=== PATIENT | female | born 1995 | race Two or more races ===

== ENCOUNTER 2024-08-17 14:04 | Outpatient (REF) | payer OTHER, SELFPAY ==
[2024-08-17 14:33] LABS: MANUAL DIFF FLAG NO
[2024-08-17 14:58] LABS: Basophils Percent Auto 0.3 % (0-2); Eosinophils Absolute Auto 0.1 X10*3/uL (0.0-0.4); Eosinophils Percent Auto 0.8 % (0-4); Hematocrit 34.7 % (37.0-47.0); Hemoglobin 10.9 g/dl (12.0-16.0); Imm Gran Abs Auto 0.02 X10*3/uL (0.00-0.03); Imm Gran Pct Auto 0.3 % (0.0-0.4); Lymphocytes Absolute Auto 2.4 X10*3/uL (1.2-4.9); Lymphocytes Percent Auto 32.7 % (20-40); Mean Corpuscular HGB Conc 31.4 g/dl (31.0-35.0); Mean Corpuscular Hemoglobin 24.3 pg (27.0-33.0); Mean Corpuscular Volume 77.3 fL (80.0-98.0); Mean Platelet Volume 11.6 fL (9.4-12.3); Monocytes Absolute Auto 0.7 X10*3/uL (0.1-1.2); Monocytes Percent Auto 8.8 % (2-11); Neutrophils Absolute Auto 4.3 x10*3/uL (2.0-8.3); Neutrophils Percent Auto 57.1 % (45-73); Platelet Count 304 X10*3/uL (160-400); Red Blood Count 4.49 X10*6/uL (4.20-5.50); Red Cell Distribution Width 18.1 % (11.0-16.0); White Blood Count 7.5 X10*3/uL (4.8-10.8)
[2024-08-17 16:29] LABS: Alanine Aminotransferase 14 U/L (0-31); Albumin Level 4.5 g/dL (3.5-5.0); Anion Gap 13 (12-20); Aspartate Amino Transferase 16 U/L (5-31); Bilirubin Total 0.3 mg/dL (0.0-1.0); Blood Urea Nitrogen 13 mg/dL (9-16); Calcium 9.8 mg/dL (8.4-10.2); Carbon Dioxide 26 mmol/L (22-29); Chloride 106 mmol/L (96-108); Estimated Glomerular Filt Rate > 60; Glucose Random 89 mg/dL (60-115); Potassium 4.6 mmol/L (3.3-5.1); Sodium 140 mmol/L (135-145); Total Protein 7.4 g/dL (6.5-8.0)
[2024-08-17 16:30] LABS: Free T4 (Free Thyroxine) 1.33 ng/dL (0.71-1.85); Thyroid Stimulating Hormone 1.99 uIU/mL (0.32-4.0)
[2024-08-17 17:27] LABS: Alkaline Phosphatase 54 U/L (39-117)
[2024-08-18 07:33] LABS: Triiodothyronine T3 Total 90 ng/dL (76-181)
== END 2024-08-17 14:05 | disposition home or self-care (01) ==
LOC: HO.LAB 14:04
PROVIDERS: Visit Provider Psychiatry & Neurology Psychiatry
DX: F33.2 Major depressive disorder, recurrent severe without psychotic features (principal); F41.1 Generalized anxiety disorder; F43.10 Post-traumatic stress disorder, unspecified
CPT/HCPCS: 36415; 80053; 84439; 84443; 84480; 85025

== ENCOUNTER 2024-08-20 13:15 | Outpatient (RCR) | payer OTHER, SELFPAY ==
[2024-08-12 11:00] VITALS: BMI 32.1
[2024-08-12 11:01] VITALS: BP 110/64; PULSE 76; TEMP 36.8
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
--- NOTE | 2024-08-19 12:10 | PC.NURSE ---
New PCP appointment with Vivian Hadley at [facility]. [address] [facility]. On November 23, 2024 at 9:45 am. Office Number [phone] to appointment fax medical records from your previous PCP to fax # [phone].
[2024-08-19 12:37] VITALS: BP 96/60; PULSE 64
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
--- NOTE | 2024-08-23 10:02 | HO.IOP ---
Phyllis was not in attendance to program today due to being at [facility] [place] for an attempted overdose.
--- NOTE | 2024-08-23 14:21 | HO.PHP ---
Phyllis was not in attendance to program today due to being at [facility] unit for an attempted overdose.
== END 2024-08-20 23:59 | disposition home or self-care (01) ==
LOC: HO.PHPA 13:15
PROVIDERS: Visit Provider Psychiatry & Neurology Psychiatry
DX: F32.2 Major depressive disorder, single episode, severe without psychotic features (principal); F41.1 Generalized anxiety disorder
CPT/HCPCS: 90791; 90853

== ENCOUNTER 2024-08-21 22:49 | Inpatient (IN) | payer OTHER, SELFPAY ==
--- NOTE | 2024-08-21 | ECG_ITS ---
Test Reason : OVERDOSE Blood Pressure : / mmHG Vent. Rate : 084 BPM Atrial Rate : 084 BPM P-R Int : 160 ms QRS Dur : 082 ms QT Int : 386 ms P-R-T Axes : 037 073 026 degrees QTc Int : 456 ms Normal sinus rhythm Normal ECG No previous ECGs available Referred By: Generic ED Physician Electronically Signed By:MADDY OLMOS MD
[2024-08-21 22:57] VITALS: BP 150/78; PULSE 89; O2SAT 98
[2024-08-21 23:09] VITALS: BP 114/63; PULSE 82; RESP 17; TEMP 37; O2SAT 98; BMI 32.7
--- NOTE | 2024-08-21 23:42 | PC.NURSE ---
pt found by significant other prior to arrival with multiple empty bottles of medications including, tylenol, morphine, propanolol, hydroxyzine, aripiprazole, and bupropion. pt reports she had done this to go to sleep, pt reports prior SI attempts. ems administered 4mg IM narcan. pt is a&ox4 at this time but appears sleepy. vss.
[2024-08-21 23:43] LABS: MANUAL DIFF FLAG NO
[2024-08-21 23:46] LABS: Basophils Percent Auto 0.1 % (0-2); Eosinophils Percent Auto 0.1 % (0-4); Hematocrit 32.3 % (37.0-47.0); Hemoglobin 10.5 g/dl (12.0-16.0); Imm Gran Abs Auto 0.02 X10*3/uL (0.00-0.03); Imm Gran Pct Auto 0.2 % (0.0-0.4); Lymphocytes Absolute Auto 2.2 X10*3/uL (1.2-4.9); Lymphocytes Percent Auto 24.6 % (20-40); Mean Corpuscular HGB Conc 32.5 g/dl (31.0-35.0); Mean Corpuscular Hemoglobin 24.2 pg (27.0-33.0); Mean Corpuscular Volume 74.6 fL (80.0-98.0); Monocytes Absolute Auto 0.7 X10*3/uL (0.1-1.2); Platelet Count 261 X10*3/uL (160-400); Red Blood Count 4.33 X10*6/uL (4.20-5.50); Red Cell Distribution Width 17.7 % (11.0-16.0)
--- NOTE | 2024-08-21 23:48 | PC.NURSE ---
poison control contacted by this RN. per poison control they do not have any recommendations due to unknown dose of medications. James AMAYA aware.
[2024-08-22] VITALS (18 sets, daily range): BP systolic 90–132; BP diastolic 45–75; PULSE 70–98; RESP 10–20; TEMP 36.2–36.8; O2SAT 93–100; BMI 35.2
[2024-08-22 00:05] LABS: Acetaminophen LAB 5 mcg/mL (<30); Salicylate < 5.0 mg/dL (15-30)
--- NOTE | 2024-08-22 00:05 | ED_ITS ---
HPI - General Adult General Chief complaint: Overdose Stated complaint: polypharm od, etoh,narcan given Time Seen by Provider: 08/21/24 23:16 Source: patient, family (Ex-), RN notes reviewed and old records reviewed Mode of arrival: EMS Limitations: altered mental status History of Present Illness ED Provider: Ponce HPI narrative: 29-year-old female presents for evaluation of an overdose. Per EMS, the patient was found unresponsive with empty pill bottles next to her The patient is quite lethargic but is able to answer questions and respond to commands She reports that she took many prescription medications. They are not all prescribed to her. She denies any street drugs. She does report some recent suicidal thoughts. She states that she took all his medications ?to go to sleep. ? The patient reports that she is not in pain The patient lives with her ex- I spoke to the ex-, Joshua. He reports the patient came home from work around 615 in the evening. He received a text message from a mutual friend who suggested that he check on the patient. He got up and went to check on the patient around 10 30-10 40 5:00 p.m.. He found the patient unresponsive and would not wake up so he called 911 The patient was given Narcan 4 mg by EMS with no effect The patient reportedly overdosed on an unknown amount of acetaminophen, morphine, propranolol, hydroxyzine, omeprazole, bupropion. The patient has a discharge summary from a psychiatrist dated 08/20/2024 with a prescription for: Buspirone 5 mg tablets to be taken b.i.d. dispensed 14 no refills Propranolol 10 mg tablets PO TID dispense 15 no refills Aripiprazole 2 mg tablets take 2 mg daily dispensed 14 no refills Prazosin 1 mg at bedtime dispensed 14 no refills. It is unclear how much Tylenol the patient had access to. The patient's ex- reports that he had morphine prescribed to him from a previous surgery He does not know the dose but believes there may have been approximately 10 tablets in the bottle that was empty Related Data Previous Rx's ?Medication ?Instructions ?Recorded buspirone 5 mg tablet 5 mg PO BID #14 tabs 08/13/24 propranolol 10 mg tablet 10 mg PO TID #15 tabs 08/13/24 aripiprazole 2 mg tablet 2 mg PO DAILY as directed #14 tabs 08/20/24 prazosin 1 mg capsule 1 mg PO BEDTIME as directed #14 08/20/24 caps Allergies Allergy/AdvReac Type Severity Reaction Status Date / Time acetaminophen [From Percocet] Allergy Hives Verified 08/21/24 23:15 oxycodone [From Percocet] Allergy Hives Verified 08/21/24 23:15 Review of Systems 2 Constitutional: Constitutional: Denies fever(s) and Denies headache(s) ENT: Denies headache(s) Cardiovascular: Cardiovascular: Denies chest pain Gastrointestinal: Gastrointestinal: Denies abdominal pain Musculoskeletal: Musculoskeletal: Denies back pain Neurologic: Denies confusion and Denies headache(s) Psychiatric: Psychiatric: Reports anxiety, Denies confusion, Reports depression and Reports suicidal ideation [facility] Past Medical History Medical History (Updated 08/22/24 @ 00:59 by Vasquez Serra) Asthma Fibromyalgia Chronic pain Surgical History (Updated 08/12/24 @ 10:58 by Ashley Richards RN) History of placement of ear tubes History of tonsillectomy and adenoidectomy Social History Social History Household Members: Other Household Members Other:: live with former spouse Patient Tobacco Use Status: Never used Tobacco Tobacco use type: Cigarette Smoked in Last 30 Days: No Use of substances other than those prescribed or required for medical reasons: No Advance Directives: No Advance Directives Information Provided: No Patient : No (unknown) Physical Exam ED Vital Signs: Vital Signs - 24 hr 08/21/24 23:09 08/22/24 01:02 08/22/24 02:01 Temperature 98.6 F 97.2 F 97.2 F Pulse Rate 82 85 89 Respiratory Rate 17 15 14 Blood Pressure 114/63 102/56 L 98/53 L Pulse Oximetry 98 93 97 Oxygen Delivery Method Room Air Room Air Room Air 08/22/24 02:47 08/22/24 03:49 08/22/24 04:42 Temperature 97.3 F 97.2 F 97.3 F Pulse Rate 98 87 76 Respiratory Rate 12 10 L 10 L Blood Pressure 106/49 L 107/52 L 103/54 L Pulse Oximetry 99 98 100 Oxygen Delivery Method Room Air Room Air Room Air 08/22/24 05:08 Temperature 97.2 F Pulse Rate 72 Respiratory Rate 11 L Blood Pressure 111/65 Pulse Oximetry 99 Oxygen Delivery Method Room Air BMI result Body Mass Index 32.7 Const General: comfortable, no acute distress and lethargic; No alert, awake or confusion Nutritional Appearance: well nourished Orientation/consciousness: No confusion and lethargic Limitations: altered mental status HENMT Head: Yes normocephalic and Yes atraumatic Throat: Yes posterior oropharynx normal Eyes Eyelids: Yes eyelids normal Conjunctivae: conjunctivae normal Sclerae: sclerae normal Corneas: corneas normal Pupils: Equal, round and reactive pupils present EOM: EOMs intact bilaterally Neck Neck: Yes full ROM Resp Effort & Inspection: normal respiratory effort, able to speak in complete sentences, no audible wheezes and not labored Auscultation: clear to auscultation bilaterally Cardio Rate: regular rate Rhythm: regular rhythm GI Inspection: No distended Palpation (GI): Soft to palpation, not firm, nontender, no guarding and not rigid Skin General skin exam: no rashes or lesions noted and elasticity normal Neuro General: No confusion Cranial nerves: Yes Equal, round and reactive pupils present and Yes Bilaterally intact EOM present Extrem Other: Moving all extremities well without any obvious deformities Course Reevaluation(s) Reevaluation #1: Discussed with poison control, recommendations are as follows If the patient has an elevated level of acetaminophen and the initial lab draw and/or any elevation in AST and ALT even mild, start N-acetylcysteine. If the Tylenol level is undetectable and the AST and ALT are within normal limits, hold off on N-acetylcysteine and repeat Tylenol level 4 hours after presentation. A point of care glucose every hour for the 1st 8 hours. An EKG every 2 hours for the 1st 8 hours If the patient is hypotensive or bradycardic, start glucagon Glucagon 5 mg bolus initially If no response, may administer up to an additional 5 mg for a total of 10 mg max Whichever dose the patient responds at will be the per hour drip rate For example if the patient responds to glucagon 7 mg IV, she will be started on a glucagon drip 7 mg per hour IV. If the patient is hypotensive/bradycardic and there is no response to glucagon, start pressors If the patient is hypoglycemic, administer dextrose If the patient has any seizures, administer benzos Low threshold for intubation Keep potassium greater than or equal to 4 Keep magnesium greater than or equal to 2 Recommendation for a minimum of 24 hour admission/observation. Time: 00:06 Reevaluation #2: Discussed with poison control again after initial set of labs. The acetaminophen level of 5 was consider negative by poison control. Recommendations are to hold N-acetylcysteine pending 4 hour Tylenol level and additional labs at the 4 hour terrell. Patient is signed out to the night team pending 4 Hour labs and admission to telemetry versus ICU. At this time, the patient is still somnolent but does arouse to verbal stimuli and responds to commands. Time: 02:03 Reevaluation #3: Dr. Lara' note: The patient was signed out to me at change of shift by the physician respiratory therapist assistant pending repeat labs. The patient is a 29-year-old woman who presented to the emergency room after taking some kind of a polypharmacy overdose. The patient's initial labs were unremarkable. Repeat labs 4 hours later showed that the patient's 2nd acetaminophen level is 11. The first acetaminophen level was 5. Transaminases remain normal. I think this essentially rules out an acetaminophen overdose. Salicylate level was negative. ETOH is negative. The patient may have taken propranolol but at no point has she developed any bradycardia yet. The patient remains quite somnolent. Recommendations from the poison Center was for 24 hours of cardiac monitoring. At this point I feel that we have ruled out any significant Tylenol ingestion. It also seems as though she is not developing significant bradycardia from propranolol. She does remain somnolent. I think she is protecting her airway. I think she may be admitted to telemetry at this point. Abhi Lara Medications Administered Discontinued Medications Generic Name Dose Route Start Last Admin Trade Name Freq PRN Reason Stop Dose Admin Sodium Chloride 1,000 mls @ 999 mls/hr 08/22/24 01:00 08/22/24 02:13 Ns IV 08/22/24 02:00 Infused .Q1H1M CORNELIA Infusion Potassium Chloride 10 meq in 100 mls @ 100 mls/hr 08/22/24 01:00 08/22/24 03:17 Potassium Chloride/H20 IV 08/22/24 02:59 Infused Q1H CORNELIA Infusion Sodium Chloride 1,000 mls @ 999 mls/hr 08/22/24 02:15 08/22/24 03:16 Ns IV 08/22/24 03:15 Infused .Q1H1M CORNELIA Infusion Naloxone HCl 2 mg 08/22/24 00:50 08/22/24 00:56 Naloxone Hcl 2 Mg/2 Ml Syringe IVPUSH 08/22/24 00:51 2 mg ONCE ONE Administration Medical Decision Making Medical Decision Making [facility] Narrative: 29-year-old female presents for evaluation of an overdose. Plan to provide supportive therapy, discuss with poison control. We will get basic labs including acetaminophen, salicylates, ethanol level and a drug screen. Plan to get an EKG. Patient's vital signs are currently stable. Differential Diagnosis Differential Diagnoses: The differential diagnosis associated with the presentation includes Tylenol overdose Opiate overdose Beta blockade overdose Depression Suicidal ideation Admission/Observation Consideration of admission/observation: Escalation of care including admission/observation considered Consult Healthcare Provider Management of the patient was discussed with: Hospitalist and Senior Instructor (Poison control) Lab Data MDM Lab Attestation statement: I reviewed the patient's lab results. Initial labs show no leukocytosis, a mild anemia consistent with her baseline, sodium within normal limits, the patient's potassium is normal at 0.5 but it is recommended to keep this above 4 so this will be repleted. Chloride within normal limits, the patient's carbon dioxide is low at 20. This may reflect some degree of acidosis. Renal function within normal limits, AST and ALT are within normal limits. 08/22/24 04:07 08/22/24 04:07 Labs: Lab Results 08/21/24 08/21/24 08/21/24 Range/Units 23:39 23:39 23:40 WBC 9.0 (4.8-10.8) X10*3/uL RBC 4.33 (4.20-5.50) X10*6/uL Hgb 10.5 L (12.0-16.0) g/dl Hct 32.3 L (37.0-47.0) % MCV 74.6 L (80.0-98.0) fL MCH 24.2 L (27.0-33.0) pg MCHC 32.5 (31.0-35.0) g/dl RDW 17.7 H (11.0-16.0) % Plt Count 261 (160-400) X10*3/uL MPV 11.0 (9.4-12.3) fL Immature Gran % (Auto) 0.2 (0.0-0.4) % Neut % (Auto) 67.0 (45-73) % Lymph % (Auto) 24.6 (20-40) % [place] % (Auto) 8.0 (2-11) % Eos % (Auto) 0.1 (0-4) % Baso % (Auto) 0.1 (0-2) % Lymph # (Auto) 2.2 (1.2-4.9) X10*3/uL [place] # (Auto) 0.7 (0.1-1.2) X10*3/uL Eos # (Auto) 0.0 (0.0-0.4) X10*3/uL Baso # (Auto) 0.0 (0.0-0.2) X10*3/uL Abs Immat Gran (auto) 0.02 (0.00-0.03) X10*3/uL Absolute Neuts (auto) 6.0 (2.0-8.3) x10*3/uL Absolute Nucleated RBC 0.000 (0.0-0.012) X10*3/uL Nucleated RBC % (auto) 0.0 (0.0-0.2) /100WBC Sodium 139 (135-145) mmol/L Potassium 3.5 D (3.3-5.1) mmol/L Chloride 107 (96-108) mmol/L Carbon Dioxide 20 L (22-29) mmol/L Anion Gap 16 (12-20) BUN 14 (9-16) mg/dL Creatinine 0.92 (0.5-1.4) mg/dL Estim Creat Clear Calc 96.0 Estimated GFR > 60 POC Glucose (60-115) mg/dL Random Glucose 108 (60-115) mg/dL Calcium 8.8 D (8.4-10.2) mg/dL Phosphorus (2.7-4.5) mg/dL Magnesium 2.5 (1.6-2.6) mg/dL Total Bilirubin 0.2 (0.0-1.0) mg/dL AST 23 (5-31) U/L ALT 25 (0-31) U/L Alkaline Phosphatase 46 (39-117) U/L Total Protein 6.8 (6.5-8.0) g/dL Albumin 4.2 (3.5-5.0) g/dL Lipase 14 Cancelled (8-78) U/L Beta HCG, Quant < 2 mIU/mL Urine Color Urine Appearance Urine pH (5.0-9.0) Ur Specific [place] (1.005-1.025) Urine Protein (Neg-Trace) mg/dL Urine Glucose (UA) (Negative) mg/dL Urine Ketones (Negative) mg/dL Urine Blood (Negative) Urine Nitrite (Negative) Ur Leukocyte Esterase (Negative) Salicylates < 5.0 L (15-30) mg/dL Urine Opiates Screen (Not Detect) Ur Buprenorphine Scrn (Not Detect) ng/mL Ur Oxycodone Screen (Not Detect) ng/mL Urine Methadone Screen (Not Detect) ng/mL Urine Fentanyl Screen (Not Detect) Acetaminophen 5 (<30) mcg/mL Ur Barbiturates Screen (Not Detect) Ur Phencyclidine Scrn (Not Detect) Ur Amphetamines Screen (Not Detect) U Benzodiazepines Scrn (Not Detect) Urine Cocaine Screen (Not Detect) U Marijuana (THC) Screen (Not Detect) Ethyl Alcohol < 10 mg/dL 08/22/24 08/22/24 08/22/24 Range/Units 00:22 00:28 01:05 WBC (4.8-10.8) X10*3/uL RBC (4.20-5.50) X10*6/uL Hgb (12.0-16.0) g/dl Hct (37.0-47.0) % MCV (80.0-98.0) fL MCH (27.0-33.0) pg MCHC (31.0-35.0) g/dl RDW (11.0-16.0) % Plt Count (160-400) X10*3/uL MPV (9.4-12.3) fL Immature Gran % (Auto) (0.0-0.4) % Neut % (Auto) (45-73) % Lymph % (Auto) (20-40) % [place] % (Auto) (2-11) % Eos % (Auto) (0-4) % Baso % (Auto) (0-2) % Lymph # (Auto) (1.2-4.9) X10*3/uL [place] # (Auto) (0.1-1.2) X10*3/uL Eos # (Auto) (0.0-0.4) X10*3/uL Baso # (Auto) (0.0-0.2) X10*3/uL Abs Immat Gran (auto) (0.00-0.03) X10*3/uL Absolute Neuts (auto) (2.0-8.3) x10*3/uL Absolute Nucleated RBC (0.0-0.012) X10*3/uL Nucleated RBC % (auto) (0.0-0.2) /100WBC Sodium (135-145) mmol/L Potassium (3.3-5.1) mmol/L Chloride (96-108) mmol/L Carbon Dioxide (22-29) mmol/L Anion Gap (12-20) BUN (9-16) mg/dL Creatinine (0.5-1.4) mg/dL Estim Creat Clear Calc Estimated GFR POC Glucose 116 H 116 H (60-115) mg/dL Random Glucose (60-115) mg/dL Calcium (8.4-10.2) mg/dL Phosphorus (2.7-4.5) mg/dL Magnesium (1.6-2.6) mg/dL Total Bilirubin (0.0-1.0) mg/dL AST (5-31) U/L ALT (0-31) U/L Alkaline Phosphatase (39-117) U/L Total Protein (6.5-8.0) g/dL Albumin (3.5-5.0) g/dL Lipase (8-78) U/L Beta HCG, Quant mIU/mL Urine Color Yellow Urine Appearance Clear Urine pH 6.0 (5.0-9.0) Ur Specific [place] <= 1.005 (1.005-1.025) Urine Protein Negative (Neg-Trace) mg/dL Urine Glucose (UA) Negative (Negative) mg/dL Urine Ketones Negative (Negative) mg/dL Urine Blood Negative (Negative) Urine Nitrite Negative (Negative) Ur Leukocyte Esterase Negative (Negative) Salicylates (15-30) mg/dL Urine Opiates Screen POSITIVE H (Not Detect) Ur Buprenorphine Scrn Not Detected (Not Detect) ng/mL Ur Oxycodone Screen Not Detected (Not Detect) ng/mL Urine Methadone Screen Not Detected (Not Detect) ng/mL Urine Fentanyl Screen Not Detected (Not Detect) Acetaminophen (<30) mcg/mL Ur Barbiturates Screen Not Detected (Not Detect) Ur Phencyclidine Scrn Not Detected (Not Detect) Ur Amphetamines Screen Not Detected (Not Detect) U Benzodiazepines Scrn Not Detected (Not Detect) Urine Cocaine Screen Not Detected (Not Detect) U Marijuana (THC) Screen Not Detected (Not Detect) Ethyl Alcohol mg/dL 08/22/24 08/22/24 08/22/24 Range/Units 03:08 04:07 04:13 WBC 7.7 (4.8-10.8) X10*3/uL RBC 4.06 L (4.20-5.50) X10*6/uL Hgb 9.9 L (12.0-16.0) g/dl Hct 30.6 L (37.0-47.0) % MCV 75.4 L (80.0-98.0) fL MCH 24.4 L (27.0-33.0) pg MCHC 32.4 (31.0-35.0) g/dl RDW 17.9 H (11.0-16.0) % Plt Count 255 (160-400) X10*3/uL MPV 10.7 (9.4-12.3) fL Immature Gran % (Auto) 0.4 (0.0-0.4) % Neut % (Auto) 63.8 (45-73) % Lymph % (Auto) 28.3 (20-40) % [place] % (Auto) 7.3 (2-11) % Eos % (Auto) 0.1 (0-4) % Baso % (Auto) 0.1 (0-2) % Lymph # (Auto) 2.2 (1.2-4.9) X10*3/uL [place] # (Auto) 0.6 (0.1-1.2) X10*3/uL Eos # (Auto) 0.0 (0.0-0.4) X10*3/uL Baso # (Auto) 0.0 (0.0-0.2) X10*3/uL Abs Immat Gran (auto) 0.03 (0.00-0.03) X10*3/uL Absolute Neuts (auto) 4.9 (2.0-8.3) x10*3/uL Absolute Nucleated RBC 0.000 (0.0-0.012) X10*3/uL Nucleated RBC % (auto) 0.0 (0.0-0.2) /100WBC Sodium 138 (135-145) mmol/L Potassium 4.1 (3.3-5.1) mmol/L Chloride 113 H (96-108) mmol/L Carbon Dioxide 21 L (22-29) mmol/L Anion Gap 8 L (12-20) BUN 11 (9-16) mg/dL Creatinine 0.72 (0.5-1.4) mg/dL Estim Creat Clear Calc 122.6 Estimated GFR > 60 POC Glucose 99 105 (60-115) mg/dL Random Glucose 109 (60-115) mg/dL Calcium 7.9 L D (8.4-10.2) mg/dL Phosphorus 2.6 L (2.7-4.5) mg/dL Magnesium 2.2 (1.6-2.6) mg/dL Total Bilirubin 0.2 (0.0-1.0) mg/dL AST 19 (5-31) U/L ALT 19 (0-31) U/L Alkaline Phosphatase 43 (39-117) U/L Total Protein 6.0 L (6.5-8.0) g/dL Albumin 3.7 (3.5-5.0) g/dL Lipase 11 (8-78) U/L Beta HCG, Quant mIU/mL Urine Color Urine Appearance Urine pH (5.0-9.0) Ur Specific [place] (1.005-1.025) Urine Protein (Neg-Trace) mg/dL Urine Glucose (UA) (Negative) mg/dL Urine Ketones (Negative) mg/dL Urine Blood (Negative) Urine Nitrite (Negative) Ur Leukocyte Esterase (Negative) Salicylates < 5.0 L (15-30) mg/dL Urine Opiates Screen (Not Detect) Ur Buprenorphine Scrn (Not Detect) ng/mL Ur Oxycodone Screen (Not Detect) ng/mL Urine Methadone Screen (Not Detect) ng/mL Urine Fentanyl Screen (Not Detect) Acetaminophen 11 (<30) mcg/mL Ur Barbiturates Screen (Not Detect) Ur Phencyclidine Scrn (Not Detect) Ur Amphetamines Screen (Not Detect) U Benzodiazepines Scrn (Not Detect) Urine Cocaine Screen (Not Detect) U Marijuana (THC) Screen (Not Detect) Ethyl Alcohol mg/dL Critical Care Time Critical Care Time Critical Care Time: Yes Total Critical Care Time: 75 Attestation: 29-year-old female presents for evaluation of an intentional overdose on multiple medications. Patient required numerous re-evaluations, consultation with poison control Discharge Plan Discharge Clinical Impression: Overdose Patient Disposition: Admitted As Inpatient Print Language: Syriac
[2024-08-22 00:13] LABS: HCG Quantitative < 2 mIU/mL
[2024-08-22 00:18] LABS: Alanine Aminotransferase 25 U/L (0-31); Albumin Level 4.2 g/dL (3.5-5.0); Alkaline Phosphatase 46 U/L (39-117); Anion Gap 16 (12-20); Aspartate Amino Transferase 23 U/L (5-31); Bilirubin Total 0.2 mg/dL (0.0-1.0); Blood Urea Nitrogen 14 mg/dL (9-16); Calcium 8.8 mg/dL (8.4-10.2); Carbon Dioxide 20 mmol/L (22-29); Chloride 107 mmol/L (96-108); Estimated Glomerular Filt Rate > 60; Ethanol < 10 mg/dL; Glucose Random 108 mg/dL (60-115); Lipase 14 U/L (8-78); Magnesium 2.5 mg/dL (1.6-2.6); Potassium 3.5 mmol/L (3.3-5.1); Sodium 139 mmol/L (135-145); Total Protein 6.8 g/dL (6.5-8.0)
--- NOTE | 2024-08-22 00:30 | PC.NURSE ---
pt straight cath per provider order at this time, pt alert to consent. pt tolerated well. 300Ml clear urine voided. pt given warm blanket. plan for EKG Q2 hours and POC Q1 hours.
[2024-08-22 00:32] LABS: Glucose, Whole Blood 116 mg/dL (60-115)
[2024-08-22 00:34] LABS: Appearance Urine Clear; Color Urine Yellow; Glucose Urine UA Negative (Negative); Leukocyte Esterase Urine Negative (Negative); Nitrite Urine Negative (Negative); Specific Gravity - Urine <= 1.005 (1.005-1.025); Urine Blood Negative (Negative); Urine Ketones Negative (Negative); Urine Protein Negative (Neg-Trace)
[2024-08-22 00:42] LABS: Amphetamine Screen Urine Not Detected (Not Detect); Barbiturates, Urine Not Detected (Not Detect); Benzodiazepines Screen Urine Not Detected (Not Detect); Buprenorphine Scr Not Detected (Not Detect); Cannabinoid Screen Urine Not Detected (Not Detect); Cocaine Screen Urine Not Detected (Not Detect); Fentanyl, urine Not Detected (Not Detect); Methadone Screen, Urine Not Detected (Not Detect); Opiate Screen Urine POSITIVE (Not Detect); Oxycodone Screen Urine Not Detected (Not Detect); Phencyclidine Screen Urine Not Detected (Not Detect)
[2024-08-22] MEDS: Naloxone HCl 2 MG/2 ML SYRINGE IVPUSH (00:56)
--- NOTE | 2024-08-22 01:00 | ECG_ITS ---
Test Reason : Overdose Blood Pressure : / mmHG Vent. Rate : 087 BPM Atrial Rate : 087 BPM P-R Int : 168 ms QRS Dur : 078 ms QT Int : 382 ms P-R-T Axes : 036 073 028 degrees QTc Int : 459 ms Normal sinus rhythm Normal ECG When compared with ECG of 21-AUG-2024 23:11, No significant change was found Referred By: Vasquez Serra Electronically Signed By:MADDY OLMOS MD
[2024-08-22] MEDS: 0.9 % Sodium Chloride 1,000 ML 999 ML IV ×2 (01:02→02:13)
--- NOTE | 2024-08-22 01:03 | PC.NURSE ---
Addendum entered by Nusrat Martines 08/22/24 01:11: no change at this time, pt continues to be alert but lethargic at this time. James AMAYA aware. Original Note: pt medicated per nov, pt given IV narcan, pt vss.
[2024-08-22 01:13] LABS: Glucose, Whole Blood 116 mg/dL (60-115)
[2024-08-22] MEDS: Potassium Chloride/H20 10 MEQ/100 ML PIGGYBACK 100 MEQ IV ×2 (01:21→02:13)
--- NOTE | 2024-08-22 02:13 | PC.NURSE ---
pt appears more alert at this time, pt eyes open and able to speak to this RN. James AMAYA aware.
--- NOTE | 2024-08-22 03:00 | ECG_ITS ---
Test Reason : OVERDOSE REPEAT Blood Pressure : / mmHG Vent. Rate : 096 BPM Atrial Rate : 096 BPM P-R Int : 150 ms QRS Dur : 076 ms QT Int : 364 ms P-R-T Axes : 045 077 038 degrees QTc Int : 459 ms Sinus rhythm with Premature supraventricular complexes Otherwise normal ECG When compared with ECG of 22-AUG-2024 00:57, Premature supraventricular complexes are now Present Referred By: Digna Francis Electronically Signed By:YESSICA PEREIRA
--- NOTE | 2024-08-22 03:35 | ECG_ITS ---
Test Reason : INTENTIONAL OVERDOSE Blood Pressure : / mmHG Vent. Rate : 064 BPM Atrial Rate : 064 BPM P-R Int : 190 ms QRS Dur : 074 ms QT Int : 388 ms P-R-T Axes : 016 076 025 degrees QTc Int : 400 ms Normal sinus rhythm Normal ECG When compared with ECG of 22-AUG-2024 23:43, No significant change was found Referred By: Digna Francis Electronically Signed By:YESSICA PEREIRA
[2024-08-22 04:12] LABS: Basophils Percent Auto 0.1 % (0-2); Eosinophils Percent Auto 0.1 % (0-4); Hematocrit 30.6 % (37.0-47.0); Hemoglobin 9.9 g/dl (12.0-16.0); Imm Gran Abs Auto 0.03 X10*3/uL (0.00-0.03); Imm Gran Pct Auto 0.4 % (0.0-0.4); Lymphocytes Absolute Auto 2.2 X10*3/uL (1.2-4.9); Lymphocytes Percent Auto 28.3 % (20-40); MANUAL DIFF FLAG NO; Mean Corpuscular HGB Conc 32.4 g/dl (31.0-35.0); Mean Corpuscular Hemoglobin 24.4 pg (27.0-33.0); Mean Corpuscular Volume 75.4 fL (80.0-98.0); Mean Platelet Volume 10.7 fL (9.4-12.3); Monocytes Absolute Auto 0.6 X10*3/uL (0.1-1.2); Monocytes Percent Auto 7.3 % (2-11); Neutrophils Absolute Auto 4.9 x10*3/uL (2.0-8.3); Neutrophils Percent Auto 63.8 % (45-73); Platelet Count 255 X10*3/uL (160-400); Red Blood Count 4.06 X10*6/uL (4.20-5.50); Red Cell Distribution Width 17.9 % (11.0-16.0); White Blood Count 7.7 X10*3/uL (4.8-10.8)
[2024-08-22 04:19] LABS: Glucose, Whole Blood 99 mg/dL (60-115)
[2024-08-22 04:19] LABS: Glucose, Whole Blood 105 mg/dL (60-115)
[2024-08-22 04:32] LABS: Acetaminophen LAB 11 mcg/mL (<30); Alanine Aminotransferase 19 U/L (0-31); Albumin Level 3.7 g/dL (3.5-5.0); Alkaline Phosphatase 43 U/L (39-117); Anion Gap 8 (12-20); Aspartate Amino Transferase 19 U/L (5-31); Bilirubin Total 0.2 mg/dL (0.0-1.0); Blood Urea Nitrogen 11 mg/dL (9-16); Calcium 7.9 mg/dL (8.4-10.2); Carbon Dioxide 21 mmol/L (22-29); Chloride 113 mmol/L (96-108); Creatinine Clr Calc Pharmacy 122.6; Estimated Glomerular Filt Rate > 60; Glucose Random 109 mg/dL (60-115); Lipase 11 U/L (8-78); Magnesium 2.2 mg/dL (1.6-2.6); Phosphorus 2.6 mg/dL (2.7-4.5); Potassium 4.1 mmol/L (3.3-5.1); Salicylate < 5.0 mg/dL (15-30); Sodium 138 mmol/L (135-145)
--- NOTE | 2024-08-22 05:00 | ECG_ITS ---
Test Reason : overdose Blood Pressure : / mmHG Vent. Rate : 083 BPM Atrial Rate : 083 BPM P-R Int : 170 ms QRS Dur : 076 ms QT Int : 356 ms P-R-T Axes : 031 080 034 degrees QTc Int : 418 ms Normal sinus rhythm Normal ECG When compared with ECG of 22-AUG-2024 03:00, Premature supraventricular complexes are no longer Present Referred By: Vasquez Serra Electronically Signed By:MADDY OLMOS MD
--- NOTE | 2024-08-22 05:02 | P.HPHOSP_ITS ---
History of Present Illness Date of Service: 08/22/24 Chief Complaint: AMS This has a 29-year-old female with pertinent history of mood disorder who was brought to the emergency department for evaluation of altered mentation. Patient is somnolent and occasionally opens eyes and answers in one-word responses. Falls back asleep mid conversation. History obtained with the help of ER provider and chart review. Patient was found to be unresponsive with empty pill bottles next to her. Patient states that she took many prescription medications to go to sleep . Some of those medications were not prescribed to her. Ex- states he received a text message from a mutual friend who suggested that he check on the patient. When he went to check on the patient he found that the patient was unresponsive and would not wake up. EMS gave Narcan 4 mg with no effect. Reportedly patient took an unknown amount of acetaminophen, morphine, propranolol, hydroxyzine, omeprazole, bupropion. In the emergency department, poison control was contacted. Salicylate and acetaminophen level negative. Unable to obtain review of systems. The patient has a discharge summary from a psychiatrist dated 08/20/2024 with a prescription for: Buspirone 5 mg tablets to be taken b.i.d. dispensed 14 no refills Propranolol 10 mg tablets PO TID dispense 15 no refills Aripiprazole 2 mg tablets take 2 mg daily dispensed 14 no refills Prazosin 1 mg at bedtime dispensed 14 no refills. It is unclear how much Tylenol the patient had access to. Review of Systems 2 Review of Systems: Yes Unobtainable due to mental status [facility] Medical History Asthma Fibromyalgia Chronic pain Pertinent family history: Unable to obtain Surgical History History of placement of ear tubes History of tonsillectomy and adenoidectomy Social History Household Members: Other Household Members Other:: live with former spouse Patient Tobacco Use Status: Never used Tobacco Tobacco use type: Cigarette Smoked in Last 30 Days: No Use of substances other than those prescribed or required for medical reasons: No Advance Directives: No Advance Directives Information Provided: No Patient : No (unknown) Meds Allergies Allergy/AdvReac Type Severity Reaction Status Date / Time acetaminophen [From Percocet] Allergy Hives Verified 08/21/24 23:15 oxycodone [From Percocet] Allergy Hives Verified 08/21/24 23:15 Physical Exam 2 Vital Signs and Narrative: Vital Signs: Last Vital Signs Temp 97.3 F 08/22/24 04:42 Pulse 76 08/22/24 04:42 Resp 10 L 08/22/24 04:42 BP 103/54 L 08/22/24 04:42 Pulse Ox 100 08/22/24 04:42 O2 Del Method Room Air 08/22/24 04:42 BMI result Body Mass Index 32.7 Middle-aged female lying in bed in no distress Neck supple, no JVD Regular rate and rhythm, S1-S2 heard Regular breath sounds bilaterally, no wheezing or crackles appreciated Abdomen soft nontender, no guarding, no rigidity Patient is somnolent and occasionally responds to verbal stimulus, falls back asleep mid conversation, not following commands, unable to assess orientation Psych: Drowsy No pedal edema Results Labs 08/22/24 04:07 08/22/24 04:07 Labs: Laboratory Results - last 24 hr 08/21/24 08/21/24 08/21/24 23:39 23:39 23:40 MCV 74.6 L MCH 24.2 L MCHC 32.5 RDW 17.7 H Plt Count 261 MPV 11.0 Immature Gran % (Auto) 0.2 Neut % (Auto) 67.0 Lymph % (Auto) 24.6 [place] % (Auto) 8.0 Eos % (Auto) 0.1 Baso % (Auto) 0.1 Lymph # (Auto) 2.2 [place] # (Auto) 0.7 Eos # (Auto) 0.0 Baso # (Auto) 0.0 Abs Immat Gran (auto) 0.02 Absolute Neuts (auto) 6.0 Absolute Nucleated RBC 0.000 Nucleated RBC % (auto) 0.0 Anion Gap 16 Estim Creat Clear Calc 96.0 Estimated GFR > 60 POC Glucose Random Glucose 108 Calcium 8.8 D Phosphorus Magnesium 2.5 Total Bilirubin 0.2 AST 23 ALT 25 Alkaline Phosphatase 46 Total Protein 6.8 Albumin 4.2 Lipase 14 Cancelled Beta HCG, Quant < 2 Urine Color Urine Appearance Urine pH Ur Specific [place] Urine Protein Urine Glucose (UA) Urine Ketones Urine Blood Urine Nitrite Ur Leukocyte Esterase Salicylates < 5.0 L Urine Opiates Screen Ur Buprenorphine Scrn Ur Oxycodone Screen Urine Methadone Screen Urine Fentanyl Screen Acetaminophen 5 Ur Barbiturates Screen Ur Phencyclidine Scrn Ur Amphetamines Screen U Benzodiazepines Scrn Urine Cocaine Screen U Marijuana (THC) Screen Ethyl Alcohol < 10 08/22/24 08/22/24 08/22/24 00:22 00:28 01:05 MCV MCH MCHC RDW Plt Count MPV Immature Gran % (Auto) Neut % (Auto) Lymph % (Auto) [place] % (Auto) Eos % (Auto) Baso % (Auto) Lymph # (Auto) [place] # (Auto) Eos # (Auto) Baso # (Auto) Abs Immat Gran (auto) Absolute Neuts (auto) Absolute Nucleated RBC Nucleated RBC % (auto) Anion Gap Estim Creat Clear Calc Estimated GFR POC Glucose 116 H 116 H Random Glucose Calcium Phosphorus Magnesium Total Bilirubin AST ALT Alkaline Phosphatase Total Protein Albumin Lipase Beta HCG, Quant Urine Color Yellow Urine Appearance Clear Urine pH 6.0 Ur Specific [place] <= 1.005 Urine Protein Negative Urine Glucose (UA) Negative Urine Ketones Negative Urine Blood Negative Urine Nitrite Negative Ur Leukocyte Esterase Negative Salicylates Urine Opiates Screen POSITIVE H Ur Buprenorphine Scrn Not Detected Ur Oxycodone Screen Not Detected Urine Methadone Screen Not Detected Urine Fentanyl Screen Not Detected Acetaminophen Ur Barbiturates Screen Not Detected Ur Phencyclidine Scrn Not Detected Ur Amphetamines Screen Not Detected U Benzodiazepines Scrn Not Detected Urine Cocaine Screen Not Detected U Marijuana (THC) Screen Not Detected Ethyl Alcohol 08/22/24 08/22/24 08/22/24 03:08 04:07 04:13 MCV 75.4 L MCH 24.4 L MCHC 32.4 RDW 17.9 H Plt Count 255 MPV 10.7 Immature Gran % (Auto) 0.4 Neut % (Auto) 63.8 Lymph % (Auto) 28.3 [place] % (Auto) 7.3 Eos % (Auto) 0.1 Baso % (Auto) 0.1 Lymph # (Auto) 2.2 [place] # (Auto) 0.6 Eos # (Auto) 0.0 Baso # (Auto) 0.0 Abs Immat Gran (auto) 0.03 Absolute Neuts (auto) 4.9 Absolute Nucleated RBC 0.000 Nucleated RBC % (auto) 0.0 Anion Gap 8 L Estim Creat Clear Calc 122.6 Estimated GFR > 60 POC Glucose 99 105 Random Glucose 109 Calcium 7.9 L D Phosphorus 2.6 L Magnesium 2.2 Total Bilirubin 0.2 AST 19 ALT 19 Alkaline Phosphatase 43 Total Protein 6.0 L Albumin 3.7 Lipase 11 Beta HCG, Quant Urine Color Urine Appearance Urine pH Ur Specific [place] Urine Protein Urine Glucose (UA) Urine Ketones Urine Blood Urine Nitrite Ur Leukocyte Esterase Salicylates < 5.0 L Urine Opiates Screen Ur Buprenorphine Scrn Ur Oxycodone Screen Urine Methadone Screen Urine Fentanyl Screen Acetaminophen 11 Ur Barbiturates Screen Ur Phencyclidine Scrn Ur Amphetamines Screen U Benzodiazepines Scrn Urine Cocaine Screen U Marijuana (THC) Screen Ethyl Alcohol Assessment and Plan (1) Acute encephalopathy: Status: Acute (2) Overdose: Status: Acute Plan This has a 29-year-old female with pertinent history of mood disorder who was brought to the emergency department for evaluation of altered mentation. #. Acute toxic encephalopathy due to Intentional overdose: Will admit patient with cardiac monitoring. Consulted sitter and Psychiatry. NPO until mentation improves. Poison control contacted from the ER with following recommendations: -EKG every 2 hours for the 1st 8 hours and then every 4 hours until 24 hours since 1st EKG -If the patient is hypotensive or bradycardic, start glucagon. Glucagon 5 mg bolus initially. If no response, may administer up to an additional 5 mg for a total of 10 mg max. Whichever dose the patient responds at will be the per hour drip rate/ For example if the patient responds to glucagon 7 mg IV, she will be started on a glucagon drip 7 mg per hour IV. -If the patient is hypotensive/bradycardic and there is no response to glucagon, start pressors -If the patient is hypoglycemic, administer dextrose -If the patient has any seizures, administer benzos -Low threshold for intubation -Keep potassium greater than or equal to 4 -Keep magnesium greater than or equal to 2 -Recommendation for a minimum of 24 hour admission/observation. #. Microcytic anemia: Obtaining iron panel #. Mood disorder, decompensated: Hold mood stabilizers until mentation improves Med rec pending DVT prophylaxis: Lovenox Full code Admit as inpatient and will require two night minimum hospital stay for close cardiac monitoring, monitoring of mentation (as above), which is not possible in a lesser acute setting. Quality Stroke Does the patient have a stroke diagnosis?: No VTE Prior VTE?: No VTE Risk Level:: Medical - moderate - high VTE Device Contraindication: Treatment Not Indicated VTE Drug Contraindication: N/A - Med Ordered
--- NOTE | 2024-08-22 05:41 | PC.NURSE ---
this rn spoke with poison control at this time, recommend for q4 EKG after 7am until 11pm 08/22. Dr.Vali garcia.
[2024-08-22 06:06] LABS: Glucose, Whole Blood 90 mg/dL (60-115)
[2024-08-22 06:07] LABS: Glucose, Whole Blood 97 mg/dL (60-115)
--- NOTE | 2024-08-22 07:00 | ECG_ITS ---
Test Reason : OVERDOSE Blood Pressure : / mmHG Vent. Rate : 076 BPM Atrial Rate : 076 BPM P-R Int : 180 ms QRS Dur : 074 ms QT Int : 390 ms P-R-T Axes : 033 085 031 degrees QTc Int : 438 ms Normal sinus rhythm Normal ECG When compared with ECG of 22-AUG-2024 04:57, No significant change was found Referred By: Deandre Lomeli Electronically Signed By:MADDY OLMOS MD
[2024-08-22 07:03] LABS: Glucose, Whole Blood 105 mg/dL (60-115)
--- NOTE | 2024-08-22 07:19 | PC.NURSE ---
Pt noted to have low BP this morning, provider notified. Remains sleeping, easily awaked. NSR on bedside monitor.
[2024-08-22] MEDS: 0.9 % Sodium Chloride Flush 3 ML SYRINGE IVFLUSH (07:32)
[2024-08-22] MEDS: Dextrose 5 % and 0.9 % NaCl 1,000 ML 100 ML IVCONT ×2 (07:36→17:17)
[2024-08-22 07:57] LABS: Iron 20 mcg/dL (30-160); Percent Iron Saturation 6 % (15-50); Total Iron Binding Capacity 328 mcg/dL (228-428); Unsaturated Iron Binding 308 ug/dL
[2024-08-22 08:07] LABS: Glucose, Whole Blood 102 mg/dL (60-115)
[2024-08-22 08:29] LABS: Glucose, Whole Blood 103 mg/dL (60-115)
--- NOTE | 2024-08-22 08:43 | PM.EVENT ---
Event Note Date of Service: 08/22/24 Event Note: This has a 29-year-old female with pertinent history of mood disorder who was brought to the emergency department for evaluation of altered mentation. Acute toxic encephalopathy due to Intentional overdose Consulted sitter and Psychiatry. NPO until mentation improves. Poison control contacted from the ER with following recommendations: -EKG every 2 hours for the 1st 8 hours and then every 4 hours until 24 hours since 1st EKG -If the patient is hypotensive or bradycardic, start glucagon. Glucagon 5 mg bolus initially. If no response, may administer up to an additional 5 mg for a total of 10 mg max. Whichever dose the patient responds at will be the per hour drip rate/ For example if the patient responds to glucagon 7 mg IV, she will be started on a glucagon drip 7 mg per hour IV. -If the patient is hypotensive/bradycardic and there is no response to glucagon, start pressors -If the patient is hypoglycemic, administer dextrose -If the patient has any seizures, administer benzos -Low threshold for intubation -Keep potassium greater than or equal to 4 -Keep magnesium greater than or equal to 2 -Recommendation for a minimum of 24 hour admission/observation. Microcytic anemia iron 20/TIBC 328 no acute bleeding add iron supplementation when more awake Mood disorder, decompensated Hold mood stabilizers until mentation improves DVT prophylaxis: [facility] Attending Dr. Fernandez Full code Admit as inpatient and will require two night minimum hospital stay for close cardiac monitoring, monitoring of mentation (as above), which is not possible in a lesser acute setting. Time Spent With Patient Time: Total time managing care of this patient today ____ minutes.
[2024-08-22 09:06] LABS: Glucose, Whole Blood 106 mg/dL (60-115)
--- NOTE | 2024-08-22 09:57 | PC.NURSE ---
Pt requested her significant other to be at her bedside. 1:1 sitter remains as well. No issues at this time
[2024-08-22 10:13] LABS: Glucose, Whole Blood 101 mg/dL (60-115)
--- NOTE | 2024-08-22 11:00 | ECG_ITS ---
Test Reason : overdose Blood Pressure : / mmHG Vent. Rate : 072 BPM Atrial Rate : 072 BPM P-R Int : 188 ms QRS Dur : 074 ms QT Int : 406 ms P-R-T Axes : 035 077 034 degrees QTc Int : 444 ms Normal sinus rhythm Normal ECG When compared with ECG of 22-AUG-2024 07:07, No significant change was found Referred By: Deandre Lomeli Electronically Signed By:YESSICA PEREIRA
[2024-08-22 11:05] LABS: Glucose, Whole Blood 103 mg/dL (60-115)
[2024-08-22 12:59] LABS: Glucose, Whole Blood 90 mg/dL (60-115)
[2024-08-22] MEDS: ondansetron HCL 4 MG/2 ML VIAL IVPUSH (13:16)
[2024-08-22 14:28] LABS: Glucose, Whole Blood 112 mg/dL (60-115)
--- NOTE | 2024-08-22 14:49 | PHA.MEDREC ---
Addendum entered by Jesse He RPh 08/22/24 15:03: Med rec reviewed. Original Note: Pharmacy Consult ? Medication Reconciliation Pharmacy has completed the medication reconciliation. Spoke with patient to confirm. Patient said she is done with buspar and propranolol. She never started prazosin. She only confirmed abilify 2 mg daily, leaving this on med rec. Per [facility], Propranolol was 10 mg BID and 1 tab prn picked up on 08/15 for a 5 DS, buspar was 5 mg BID picked up on 08/15 for a 7 DS, abilify was 2 mg daily picked up on 08/20 for a 14 DS, and prazosin was 1 mg daily picked up on 08/20 for a 14 DS as well.
--- NOTE | 2024-08-22 15:29 | ECG_ITS ---
Test Reason : EKG PER POISON CONTROL Blood Pressure : / mmHG Vent. Rate : 070 BPM Atrial Rate : 070 BPM P-R Int : 194 ms QRS Dur : 076 ms QT Int : 412 ms P-R-T Axes : 032 074 027 degrees QTc Int : 444 ms Normal sinus rhythm Normal ECG No previous ECGs available Referred By: Digna Francis Electronically Signed By:YESSICA PEREIRA
[2024-08-22 15:39] LABS: Glucose, Whole Blood 96 mg/dL (60-115)
[2024-08-22 17:24] LABS: Glucose, Whole Blood 96 mg/dL (60-115)
[2024-08-22 18:41] LABS: Glucose, Whole Blood 90 mg/dL (60-115)
--- NOTE | 2024-08-22 19:34 | ECG_ITS ---
Test Reason : INTENTONAL OVERDOSE Blood Pressure : / mmHG Vent. Rate : 081 BPM Atrial Rate : 081 BPM P-R Int : 186 ms QRS Dur : 078 ms QT Int : 404 ms P-R-T Axes : 031 081 024 degrees QTc Int : 469 ms Artifact in tracing Normal sinus rhythm probably normal EKG No significant changes when compared with the previous EKG of same day Referred By: Digna Francis Electronically Signed By:YESSICA PEREIRA
[2024-08-22 19:46] LABS: Glucose, Whole Blood 101 mg/dL (60-115)
[2024-08-22 21:06] LABS: Glucose, Whole Blood 104 mg/dL (60-115)
[2024-08-22 22:19] LABS: Glucose, Whole Blood 111 mg/dL (60-115)
--- NOTE | 2024-08-22 23:43 | ECG_ITS ---
Test Reason : INTENTIONAL OVERDOSE Blood Pressure : / mmHG Vent. Rate : 087 BPM Atrial Rate : 087 BPM P-R Int : 188 ms QRS Dur : 076 ms QT Int : 368 ms P-R-T Axes : 025 084 019 degrees QTc Int : 442 ms Normal sinus rhythm Nonspecific T wave abnormality Abnormal ECG When compared with ECG of 22-AUG-2024 19:35, No significant changes seen Referred By: Digna Francis Electronically Signed By:YESSICA PEREIRA
[2024-08-22 23:56] LABS: Glucose, Whole Blood 106 mg/dL (60-115)
[2024-08-23] VITALS (7 sets, daily range): BP systolic 110–142; BP diastolic 59–85; PULSE 65–94; RESP 16–20; TEMP 36.2–36.9; O2SAT 98–100
[2024-08-23 00:43] LABS: Glucose, Whole Blood 114 mg/dL (60-115)
[2024-08-23 01:41] LABS: Glucose, Whole Blood 109 mg/dL (60-115)
[2024-08-23 02:39] LABS: Glucose, Whole Blood 101 mg/dL (60-115)
[2024-08-23] MEDS: Dextrose 5 % and 0.9 % NaCl 1,000 ML 100 ML IVCONT (03:46)
[2024-08-23] MEDS: 0.9 % Sodium Chloride Flush 3 ML SYRINGE IVFLUSH ×3 (03:47→20:47)
[2024-08-23 03:48] LABS: Glucose, Whole Blood 98 mg/dL (60-115)
[2024-08-23 04:35] LABS: Glucose, Whole Blood 94 mg/dL (60-115)
[2024-08-23 05:36] LABS: Glucose, Whole Blood 102 mg/dL (60-115)
[2024-08-23 06:30] LABS: Glucose, Whole Blood 94 mg/dL (60-115)
[2024-08-23 06:52] LABS: MANUAL DIFF FLAG NO
[2024-08-23 07:03] LABS: Basophils Percent Auto 0.1 % (0-2); Eosinophils Percent Auto 0.4 % (0-4); Hematocrit 30.2 % (37.0-47.0); Hemoglobin 9.4 g/dl (12.0-16.0); Imm Gran Abs Auto 0.02 X10*3/uL (0.00-0.03); Imm Gran Pct Auto 0.3 % (0.0-0.4); Lymphocytes Absolute Auto 2.5 X10*3/uL (1.2-4.9); Lymphocytes Percent Auto 35.1 % (20-40); Mean Corpuscular HGB Conc 31.1 g/dl (31.0-35.0); Mean Corpuscular Hemoglobin 24.2 pg (27.0-33.0); Mean Corpuscular Volume 77.6 fL (80.0-98.0); Mean Platelet Volume 11.8 fL (9.4-12.3); Monocytes Absolute Auto 0.6 X10*3/uL (0.1-1.2); Monocytes Percent Auto 8.6 % (2-11); Neutrophils Absolute Auto 3.9 x10*3/uL (2.0-8.3); Neutrophils Percent Auto 55.5 % (45-73); Platelet Count 231 X10*3/uL (160-400); Red Blood Count 3.89 X10*6/uL (4.20-5.50); Red Cell Distribution Width 18.3 % (11.0-16.0); White Blood Count 7.1 X10*3/uL (4.8-10.8)
[2024-08-23 07:11] LABS: Alanine Aminotransferase 12 U/L (0-31); Albumin Level 3.5 g/dL (3.5-5.0); Alkaline Phosphatase 40 U/L (39-117); Anion Gap 12 (12-20); Aspartate Amino Transferase 15 U/L (5-31); Bilirubin Total 0.2 mg/dL (0.0-1.0); Blood Urea Nitrogen 5 mg/dL (9-16); Calcium 8.3 mg/dL (8.4-10.2); Carbon Dioxide 21 mmol/L (22-29); Chloride 108 mmol/L (96-108); Estimated Glomerular Filt Rate > 60; Glucose Random 94 mg/dL (60-115); Iron 22 mcg/dL (30-160); Percent Iron Saturation 7 % (15-50); Potassium 3.5 mmol/L (3.3-5.1); Sodium 137 mmol/L (135-145); Total Iron Binding Capacity 314 mcg/dL (228-428); Total Protein 5.7 g/dL (6.5-8.0); Unsaturated Iron Binding 292 ug/dL
[2024-08-23 07:41] LABS: Glucose, Whole Blood 90 mg/dL (60-115)
[2024-08-23 08:18] LABS: Glucose, Whole Blood 90 mg/dL (60-115)
--- NOTE | 2024-08-23 13:47 | P.PNIM_ITS ---
Subjective Subjective Date of Service: 08/23/24 Interval History: Seen and examined this morning Follow-up for intentional drug overdose with multiple medications No overnight events No specific complaints this morning. Tolerating diet Review of Systems Review of Systems: Yes all other systems are reviewed and are negative Constitutional Constitutional: Denies chills and Denies fever(s) Cardiovascular Cardiovascular: Denies chest pain, Denies palpitations and Denies dyspnea Respiratory Respiratory: Denies cough and Denies dyspnea Gastrointestinal Gastrointestinal: Denies abdominal pain, Denies diarrhea, Denies nausea and Denies vomiting Endocrine Endocrine: Denies palpitations Physical Exam 2 Vital Signs: Vital Signs: Last Vital Signs Temp 98.4 F 08/23/24 11:12 Pulse 84 08/23/24 11:12 Resp 18 08/23/24 11:12 BP 125/59 L 08/23/24 11:12 Pulse Ox 99 08/23/24 11:12 O2 Del Method Room Air 08/23/24 11:12 BMI result Body Mass Index 35.2 Const: General: cooperative, comfortable, no acute distress, alert and awake Nutritional Appearance: overweight Orientation/consciousness: patient oriented x3 Resp: Effort & Inspection: normal respiratory effort, able to speak in complete sentences, no respiratory distress and no use of accessory muscles A uscultation: clear to auscultation bilaterally Cardio: Rate: regular rate GI: Inspection: No distended Palpation (GI): Soft to palpation and nontender Neuro: General: patient oriented x3, moves all extremities and CN's II-XI intact bilaterally Extrem: General: Yes no pedal edema Objective Data Active Medications Acetaminophen (Acetaminophen 325 Mg Tablet) 650 mg PO Q6H PRN PRN Reason: Pain, Mild (Pain Scale 1-3), fever or headache Calcium Carbonate (Calcium Carbonate 750 Mg Tab.Chew) 750 mg PO Q4H PRN PRN Reason: Heartburn Enoxaparin Sodium (Enoxaparin Sodium 40 Mg/0.4 Ml Syringe) 40 mg SUBCUT Q24H [facility] Last Admin: 08/23/24 09:23 Dose: Not Given Documented By: GARRISON Non-Admin Reason: Patient Refused Ferrous Sulfate (Ferrous Sulfate 324 Mg Tablet.Dr) 324 mg PO BIDWM [place] Magnesium Hydroxide (Milk Of Magnesia 30 Ml Oral.Susp) 30 ml PO DAILY PRN PRN Reason: Constipation Melatonin (Melatonin 3 Mg Tablet) 6 mg PO BEDTIME PRN PRN Reason: Insomnia Ondansetron HCl (Ondansetron Hcl 4 Mg/2 Ml Vial) 4 mg IVPUSH Q8H PRN PRN Reason: Nausea and Vomiting Last Admin: 08/22/24 13:16 Dose: 4 mg Documented By: ARTHUR Sodium Chloride (0.9 % Sodium Chloride Flush 3 Ml Syringe) 3 ml IVFLUSH QSHIFT CORNELIA Last Admin: 08/23/24 09:23 Dose: Not Given Documented By: GARRISON Non-Admin Reason: IV Running Labs 08/23/24 05:55 08/23/24 05:55 Labs: Laboratory Results - last 24 hr 08/22/24 08/22/24 08/22/24 14:23 15:18 17:20 MCV MCH MCHC RDW Plt Count MPV Immature Gran % (Auto) Neut % (Auto) Lymph % (Auto) [place] % (Auto) Eos % (Auto) Baso % (Auto) Lymph # (Auto) [place] # (Auto) Eos # (Auto) Baso # (Auto) Abs Immat Gran (auto) Absolute Neuts (auto) Absolute Nucleated RBC Nucleated RBC % (auto) Anion Gap Estim Creat Clear Calc Estimated GFR POC Glucose 112 96 96 Random Glucose Calcium Iron TIBC % Saturation Unsat Iron Binding Total Bilirubin AST ALT Alkaline Phosphatase Total Protein Albumin 08/22/24 08/22/24 08/22/24 18:38 19:29 20:52 MCV MCH MCHC RDW Plt Count MPV Immature Gran % (Auto) Neut % (Auto) Lymph % (Auto) [place] % (Auto) Eos % (Auto) Baso % (Auto) Lymph # (Auto) [place] # (Auto) Eos # (Auto) Baso # (Auto) Abs Immat Gran (auto) Absolute Neuts (auto) Absolute Nucleated RBC Nucleated RBC % (auto) Anion Gap Estim Creat Clear Calc Estimated GFR POC Glucose 90 101 104 Random Glucose Calcium Iron TIBC % Saturation Unsat Iron Binding Total Bilirubin AST ALT Alkaline Phosphatase Total Protein Albumin 08/22/24 08/22/24 08/23/24 22:14 23:35 00:39 MCV MCH MCHC RDW Plt Count MPV Immature Gran % (Auto) Neut % (Auto) Lymph % (Auto) [place] % (Auto) Eos % (Auto) Baso % (Auto) Lymph # (Auto) [place] # (Auto) Eos # (Auto) Baso # (Auto) Abs Immat Gran (auto) Absolute Neuts (auto) Absolute Nucleated RBC Nucleated RBC % (auto) Anion Gap Estim Creat Clear Calc Estimated GFR POC Glucose 111 106 114 Random Glucose Calcium Iron TIBC % Saturation Unsat Iron Binding Total Bilirubin AST ALT Alkaline Phosphatase Total Protein Albumin 08/23/24 08/23/24 08/23/24 01:36 02:34 03:32 MCV MCH MCHC RDW Plt Count MPV Immature Gran % (Auto) Neut % (Auto) Lymph % (Auto) [place] % (Auto) Eos % (Auto) Baso % (Auto) Lymph # (Auto) [place] # (Auto) Eos # (Auto) Baso # (Auto) Abs Immat Gran (auto) Absolute Neuts (auto) Absolute Nucleated RBC Nucleated RBC % (auto) Anion Gap Estim Creat Clear Calc Estimated GFR POC Glucose 109 101 98 Random Glucose Calcium Iron TIBC % Saturation Unsat Iron Binding Total Bilirubin AST ALT Alkaline Phosphatase Total Protein Albumin 08/23/24 08/23/24 08/23/24 04:30 05:32 05:55 MCV 77.6 L MCH 24.2 L MCHC 31.1 RDW 18.3 H Plt Count 231 MPV 11.8 Immature Gran % (Auto) 0.3 Neut % (Auto) 55.5 Lymph % (Auto) 35.1 [place] % (Auto) 8.6 Eos % (Auto) 0.4 Baso % (Auto) 0.1 Lymph # (Auto) 2.5 [place] # (Auto) 0.6 Eos # (Auto) 0.0 Baso # (Auto) 0.0 Abs Immat Gran (auto) 0.02 Absolute Neuts (auto) 3.9 Absolute Nucleated RBC 0.000 Nucleated RBC % (auto) 0.0 Anion Gap 12 Estim Creat Clear Calc 133.0 Estimated GFR > 60 POC Glucose 94 102 Random Glucose 94 Calcium 8.3 L Iron 22 L TIBC 314 % Saturation 7 L Unsat Iron Binding 292 Total Bilirubin 0.2 AST 15 ALT 12 Alkaline Phosphatase 40 Total Protein 5.7 L Albumin 3.5 08/23/24 08/23/24 08/23/24 06:25 07:20 08:15 MCV MCH MCHC RDW Plt Count MPV Immature Gran % (Auto) Neut % (Auto) Lymph % (Auto) [place] % (Auto) Eos % (Auto) Baso % (Auto) Lymph # (Auto) [place] # (Auto) Eos # (Auto) Baso # (Auto) Abs Immat Gran (auto) Absolute Neuts (auto) Absolute Nucleated RBC Nucleated RBC % (auto) Anion Gap Estim Creat Clear Calc Estimated GFR POC Glucose 94 90 90 Random Glucose Calcium Iron TIBC % Saturation Unsat Iron Binding Total Bilirubin AST ALT Alkaline Phosphatase Total Protein Albumin Assessment and Plan (1) Overdose: Status: Acute Plan This has a 29-year-old female with pertinent history of mood disorder who was brought to the emergency department for evaluation of altered mentation. Acute toxic encephalopathy due to Intentional overdose overdose with multiple meds completed 24 hours of EKGs; no EKG changes no seizures or hypoglycemia. magnesium remains >2, k 3.5 today, will give po replacement awake and alert this am after 24 hours of observation see full poison controls recs on previous day progress note seen by care team - meets criteria for IPLOC, no bed available today. section 12 signed, can NOT leave AMA continue 1:1 sitter Microcytic anemia iron 20/TIBC 328 no acute bleeding add iron supplementation Mood disorder, decompensated Hold mood stabilizers until seen by psych DVT prophylaxis: Lovenox Attending Dr. Fernandez Full code Admit as inpatient and will require two night minimum hospital stay for close cardiac monitoring, monitoring of mentation (as above), which is not possible in a lesser acute setting. Quality Stroke Does the patient have a stroke diagnosis?: No VTE Prior VTE?: No VTE Risk Level:: Medical - moderate - high VTE Device Contraindication: Treatment Not Indicated VTE Drug Contraindication: N/A - Med Ordered
--- NOTE | 2024-08-23 14:15 | MHC.CARE ---
Pt meets the criteria for IPLOC secondary to two intentional overdoses in 2 days. Pt is on a Section 12a on the medical floor. Provider in agreement.
[2024-08-23] MEDS: Ferrous Sulfate 324 MG TABLET.DR PO (15:18)
[2024-08-23] MEDS: Potassium Chloride Packet 20 MEQ PACKET 40 MEQ PO (15:19)
[2024-08-23 16:40] LABS: UPreg QC Valid YES; Urine Pregnancy NEGATIVE (NEGATIVE)
[2024-08-23] MEDS: Acetaminophen 325 MG TABLET 975 MG PO (20:47)
[2024-08-23] MEDS: Ketorolac Tromethamine 30 MG/ML VIAL IVPUSH (23:07)
[2024-08-24 03:07] VITALS: BP 138/84; PULSE 77; RESP 18; TEMP 36.6; O2SAT 99
--- NOTE | 2024-08-24 07:27 | PC.NURSE ---
c/o burning sensation when urinating, pt reported that the symptoms started this am , was notified
[2024-08-24 08:00] VITALS: BP 129/79; PULSE 99; RESP 20; TEMP 36.2; O2SAT 100
[2024-08-24 10:34] LABS: Appearance Urine Clear; Color Urine Yellow; Glucose Urine UA Negative (Negative); Leukocyte Esterase Urine Large (3+) (Negative); Nitrite Urine Negative (Negative); Specific Gravity - Urine <= 1.005 (1.005-1.025); UMIC TRIGGER UACC YES; Urine Blood Large (3+) (Negative); Urine Ketones Negative (Negative); Urine Protein Negative (Neg-Trace)
[2024-08-24 10:53] LABS: Bacteria Urine None Seen (None Seen); Hyaline Casts Urine 0-2 /LPF (0-2); Squamous Epithelial Cell Urine 0-2 /HPF (0-2); UACC Culture Trigger YES; WBC Urine >50 /HPF (0-5)
[2024-08-24] MEDS: Phenazopyridine HCL 200 MG TABLET PO (11:03)
[2024-08-24] MEDS: Ferrous Sulfate 324 MG TABLET.DR PO (11:03)
[2024-08-24] MEDS: 0.9 % Sodium Chloride Flush 3 ML SYRINGE IVFLUSH (11:04)
[2024-08-24 11:33] VITALS: BP 132/72; PULSE 96; RESP 20; TEMP 35.9; O2SAT 100
--- NOTE | 2024-08-24 12:48 | P.DS_ITS ---
DS: Providers Provider Date of Service: 08/24/24 Date of admission: 08/22/24 05:01 Date of discharge: 08/24/24 Primary care physician: None Physician Consults: 08/22/24 06:09 Consult for Sitter Routine Reason for consultation: Overdose Consult to Psychiatry Routine Consulting Provider: [facility] Reason for consultation: Intentional overdose 08/23/24 11:33 Consult to Care Team Routine Comment: Reason for consultation: drug overdose; LOC Has provider been notified: No Attending physician on discharge: Raymond Cleveland Discharging clinician: Digna Francis DS: Diagnosis Discharge Diagnosis (1) Overdose: Status: Acute DS: Summary Hospital Course Hospital Course: From H&P on the day of admission This has a 29-year-old female with pertinent history of mood disorder who was brought to the emergency department for evaluation of altered mentation. Patient is somnolent and occasionally opens eyes and answers in one-word responses. Falls back asleep mid conversation. History obtained with the help of ER provider and chart review. Patient was found to be unresponsive with empty pill bottles next to her. Patient states that she took many prescription medications to go to sleep . Some of those medications were not prescribed to her. Ex- states he received a text message from a mutual friend who suggested that he check on the patient. When he went to check on the patient he found that the patient was unresponsive and would not wake up. EMS gave Narcan 4 mg with no effect. Reportedly patient took an unknown amount of acetaminophen, morphine, propranolol, hydroxyzine, omeprazole, bupropion. In the emergency department, poison control was contacted. Salicylate and acetaminophen level negative. Unable to obtain review of systems. The patient has a discharge summary from a psychiatrist dated 08/20/2024 with a prescription for: Buspirone 5 mg tablets to be taken b.i.d. dispensed 14 no refills Propranolol 10 mg tablets PO TID dispense 15 no refills Aripiprazole 2 mg tablets take 2 mg daily dispensed 14 no refills Prazosin 1 mg at bedtime dispensed 14 no refills. It is unclear how much Tylenol the patient had access to. Acute toxic encephalopathy due to Intentional overdose overdose with multiple meds. completed 24 hours of EKGs with no EKG changes. no seizures or hypoglycemia. she is awake and alert. she was maintained with 1:1 sitter for safety. she was seen by the care team and meets criteria for IPLOC. section 12 signed. and she will be transferred to inpatient psych floor. Microcytic anemia iron 20/TIBC 328. started on iron supplementation. monitor for constipation. dysuria/hematuria/chronic intermittent bladder pain began on 08/24, mild. H/H slight downtrend since admission but overall stable. seen by multiple urologists in the past, questionable diagnosis of interstitial cystitis. d/w urology here, they recommend non urgent follow up with primary urologist or with [facility] based on patient preference. No indication for further inpatient intervention at this time. Can follow CBC but no indication for transfusion at this time. will start empiric therapy for possible UTI - cefuroxime 250 bid for 5 days - can stop if urine culture is negative. can use pyridium short term for dysuria symptoms. if persistent hematuria of pain can consider urology consultation. recommend outpatient follow up with PCP following discharge. Time Attestation Discharge Coordination Time (in mins): 36 Quality: Safe Use of Opioids Does Pt have an Active Cancer Diagnosis on the Problem List?: No Quality: Stroke Does the patient have a stroke diagnosis?: No Physical Exam Vital Signs: Vital Signs: Last Vital Signs Temp 96.6 F L 08/24/24 11:33 Pulse 96 08/24/24 11:33 Resp 20 08/24/24 11:33 BP 132/72 08/24/24 11:33 Pulse Ox 100 08/24/24 11:33 O2 Del Method Room Air 08/24/24 11:33 BMI result Body Mass Index 35.2 Const: General: cooperative, comfortable, no acute distress, alert and awake Nutritional Appearance: overweight Orientation/consciousness: patient oriented x3 Resp: Effort & Inspection: normal respiratory effort, able to speak in complete sentences, no respiratory distress and no use of accessory muscles Auscultation: clear to auscultation bilaterally Cardio: Rate: regular rate GI: Inspection: No distended Palpation (GI): Soft to palpation and nontender Neuro: General: patient oriented x3, moves all extremities and CN's II-XI intact bilaterally Extrem: General: Yes no pedal edema DS: Data Data Completed and Pending Labs on day of discharge: Laboratory Results - last 24 hr 08/23/24 08/24/24 16:28 10:25 Urine Color Yellow Urine Appearance Clear Urine pH 6.0 Ur Specific [place] <= 1.005 Urine Protein Negative Urine Glucose (UA) Negative Urine Ketones Negative Urine Blood Large (3+) H Urine Nitrite Negative Ur Leukocyte Esterase Large (3+) H Urine RBC 3-5 H Urine WBC >50 H Ur Squamous Epith Cells 0-2 Urine Bacteria None Seen Hyaline Casts 0-2 Urine Test NEGATIVE Discharge Plan Discharge Patient Disposition: Xfer Psychiatric Hosp Discharge Diagnosis: intentional overdose dysurina/hematuria/possible UTI iron deficiency anemia Referrals: Physician,Unknown J [Physician] - 1 Week Discharge Medications: New cefuroxime axetil 250 mg Tablet 250 mg PO Q12H Qty: 10 0RF ferrous sulfate 324 mg (65 mg iron) Tablet,Delayed Release (Dr/Ec) 324 mg PO BIDWM Qty: 60 0RF docusate sodium 100 mg Capsule 100 mg PO BEDTIME Qty: 60 0RF phenazopyridine 200 mg Tablet 200 mg PO TID PRN (Reason: dysuria) Qty: 6 0RF Held aripiprazole 2 mg tablet 2 mg PO DAILY Hold Instructions: hold until eval by psych provider Discharge Orders: Discharge Order (Routine); Ordered 08/24/24 Ordered By: Digna Francis Activity on Discharge: As tolerated Stand Alone Forms: Patient Portal Discharge page Print Language: Thai Health Concerns: intentional drug overdose hematuria/chronic bladder pain/possible UTI iron deficiency anemia Plan of Treatment: start po iron replacement - monitor for constipation. recommend stool softeners for hematuria/dysuria - empirically started on cefuroxime. recommend 5 day course. if urine culture negative can d/c abx can use pyridium short term of dysuria repeat CBC in am outpatient follow up with urology after discharge outpatient follow up with PCP after discharge Assessment: see discharge summary - transfer to inpatient psych for further care
[2024-08-24] MEDS: cefuroxime axetiL 250 MG TABLET PO (14:02)
--- NOTE | 2024-08-24 14:05 | MHC.CM.PN ---
Patient has been medically cleared for dc to [facility] today.
[2024-08-24 15:09] VITALS: BP 135/76; PULSE 95; RESP 20; TEMP 36.6; O2SAT 97
== END 2024-08-24 12:00 | DRG 817 ==
LOC: HO.ED 08-22 05:11 → HO.EDOVER 08-22 05:16 → HO.IMC 08-22 12:13
PROVIDERS: Nurse Practitioner Acute Care; Physician Assistant; Admitting Provider Student in an Organized Health Care Education/Training Program; Emergency Provider Emergency Medicine; Visit Provider Physician Assistant Medical
DX: T40.2X2A Poisoning by other opioids, intentional self-harm, initial encounter (principal); G92.8 Other toxic encephalopathy; T44.7X2A Poisoning by beta-adrenoreceptor antagonists, intentional self-harm, initial encounter; T43.592A Poisoning by other antipsychotics and neuroleptics, intentional self-harm, initial encounter; F39 Unspecified mood [affective] disorder; N39.0 Urinary tract infection, site not specified; R31.9 Hematuria, unspecified; T47.1X2A Poisoning by other antacids and anti-gastric-secretion drugs, intentional self-harm, initial encounter; T43.292A Poisoning by other antidepressants, intentional self-harm, initial encounter; D50.9 Iron deficiency anemia, unspecified; Z23 Encounter for immunization; Z79.899 Other long term (current) drug therapy
CPT/HCPCS: 36415; 80053; 80143; 80179; 80307; 81001; 81003; 81025; 82947; 83540; 83690; 83735; 84100; 84702; 85025; 87086; 93005; 99285; J1885; J2310; J2405; J3480; S9485

== ENCOUNTER → 2024-08-21 23:11 | Outpatient (BNV) | payer OTHER, SELFPAY | PROVIDERS: Admitting Provider Student in an Organized Health Care Education/Training Program; Emergency Provider Emergency Medicine; Visit Provider Internal Medicine Cardiovascular Disease | DX: T50.902A Poisoning by unspecified drugs, medicaments and biological substances, intentional self-harm, initial encounter (principal) | CPT/HCPCS: 93010 ==

== ENCOUNTER 2024-08-22 05:01 | Outpatient (BNV) | payer OTHER, SELFPAY | END 2024-08-22 07:00 | PROVIDERS: Admitting Provider Student in an Organized Health Care Education/Training Program; Emergency Provider Emergency Medicine; Visit Provider Internal Medicine Cardiovascular Disease | DX: T50.902A Poisoning by unspecified drugs, medicaments and biological substances, intentional self-harm, initial encounter (principal); R94.31 Abnormal electrocardiogram [ECG] [EKG]; I49.1 Atrial premature depolarization | CPT/HCPCS: 93010 ==

== ENCOUNTER → 2024-08-22 05:01 | Outpatient (BNV) | payer OTHER, SELFPAY | PROVIDERS: Admitting Provider Student in an Organized Health Care Education/Training Program; Emergency Provider Emergency Medicine; Visit Provider Student in an Organized Health Care Education/Training Program | DX: T50.901A Poisoning by unspecified drugs, medicaments and biological substances, accidental (unintentional), initial encounter (principal) | CPT/HCPCS: 99223; 99232; 99239; 99499 ==

== ENCOUNTER 2024-08-24 16:35 | Inpatient (IN) | payer OTHER, SELFPAY ==
[2024-08-24 16:15] VITALS: BP 143/88; PULSE 105; TEMP 36.9; O2SAT 96; BMI 31.2
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
[2024-08-24 20:00] VITALS: BP 151/94; PULSE 95; TEMP 36.7; O2SAT 100
[2024-08-25 08:00] VITALS: BP 127/63; PULSE 86; RESP 16; TEMP 36.5; O2SAT 99
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
[2024-08-25 09:16] LABS: MANUAL DIFF FLAG NO
[2024-08-25 09:21] LABS: Eosinophils Absolute Auto 0.1 X10*3/uL (0.0-0.4); Eosinophils Percent Auto 0.8 % (0-4); Hematocrit 36.3 % (37.0-47.0); Hemoglobin 11.8 g/dl (12.0-16.0); Imm Gran Abs Auto 0.02 X10*3/uL (0.00-0.03); Imm Gran Pct Auto 0.3 % (0.0-0.4); Lymphocytes Percent Auto 26.1 % (20-40); Mean Corpuscular HGB Conc 32.5 g/dl (31.0-35.0); Mean Corpuscular Hemoglobin 24.6 pg (27.0-33.0); Mean Corpuscular Volume 75.8 fL (80.0-98.0); Mean Platelet Volume 11.3 fL (9.4-12.3); Monocytes Absolute Auto 0.7 X10*3/uL (0.1-1.2); Monocytes Percent Auto 8.9 % (2-11); Neutrophils Absolute Auto 4.8 x10*3/uL (2.0-8.3); Neutrophils Percent Auto 63.9 % (45-73); Platelet Count 322 X10*3/uL (160-400); Red Blood Count 4.79 X10*6/uL (4.20-5.50); Red Cell Distribution Width 17.7 % (11.0-16.0); White Blood Count 7.5 X10*3/uL (4.8-10.8)
[2024-08-25 09:35] LABS: Estimated Average Glucose 111 mg/dL; Hemoglobin A1C 108.0767 umol/L; Hemoglobin A1c % 5.5 % (<6.0)
[2024-08-25 09:41] LABS: Cholesterol 174 mg/dL (<200); HDL Cholesterol 47 mg/dL (>40); LDL Cholesterol Calculated 97 mg/dL (<100); Triglycerides 153 mg/dL (<150)
[2024-08-25 09:57] LABS: TSH reflex Free T4 1.62 uIU/mL (0.32-4.0)
[2024-08-25] MEDS: cefuroxime axetiL 250 MG TABLET PO ×2 (12:42→21:13)
[2024-08-25] MEDS: Cariprazine HCl 1.5 MG CAPSULE PO (14:02)
[2024-08-25] MEDS: Phenazopyridine HCL 200 MG TABLET PO ×2 (14:02→17:13)
[2024-08-25] MEDS: Flu Vacc TS2024-25(6mos up)/PF 0.5 ML SYRINGE IM (14:10)
[2024-08-25] MEDS: Ferrous Sulfate 324 MG TABLET.DR PO (17:16)
[2024-08-25 20:00] VITALS: BP 129/70; PULSE 103; TEMP 36.9; O2SAT 98
[2024-08-25] MEDS: cloNIDine HCL 0.1 MG TABLET PO (21:13)
[2024-08-25] MEDS: Docusate Sodium 100 MG CAPSULE PO (21:13)
[2024-08-26 07:00] VITALS: BMI 30.9
[2024-08-26] MEDS: cefuroxime axetiL 250 MG TABLET PO ×2 (08:55→22:25)
[2024-08-26] MEDS: Ferrous Sulfate 324 MG TABLET.DR PO ×2 (08:55→17:22)
[2024-08-26 09:19] VITALS: BP 121/57; PULSE 79; RESP 18; TEMP 36.5; O2SAT 98
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
[2024-08-26 21:00] VITALS: BP 136/79; PULSE 103; O2SAT 99
[2024-08-26] MEDS: cloNIDine HCL 0.1 MG TABLET PO (22:25)
[2024-08-26] MEDS: Docusate Sodium 100 MG CAPSULE PO (22:26)
[2024-08-27 08:00] VITALS: BP 120/63; PULSE 81; RESP 16; TEMP 36.3; O2SAT 99
[2024-08-27] MEDS: cefuroxime axetiL 250 MG TABLET PO ×2 (09:50→20:52)
[2024-08-27] MEDS: Ferrous Sulfate 324 MG TABLET.DR PO ×3 (09:50→20:52)
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
[2024-08-27 20:00] VITALS: BP 128/85; O2SAT 99
[2024-08-27 20:51] VITALS: BP 122/71
[2024-08-27] MEDS: cloNIDine HCL 0.1 MG TABLET PO (20:51)
[2024-08-27] MEDS: Cariprazine HCl 3 MG CAPSULE PO (21:41)
[2024-08-28 08:00] VITALS: BP 144/64; PULSE 84; RESP 16; TEMP 36.4; O2SAT 98
[2024-08-28] MEDS: cefuroxime axetiL 250 MG TABLET PO ×2 (08:25→21:20)
[2024-08-28] MEDS: Ferrous Sulfate 324 MG TABLET.DR PO ×2 (08:25→17:07)
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
[2024-08-28 20:00] VITALS: BP 127/79; PULSE 102; RESP 16; TEMP 37.1; O2SAT 98
[2024-08-28] MEDS: Cariprazine HCl 3 MG CAPSULE PO (21:20)
[2024-08-28] MEDS: cloNIDine HCL 0.2 MG TABLET PO (21:20)
[2024-08-29 08:00] VITALS: BP 114/58; PULSE 74; RESP 16; O2SAT 99
[2024-08-29] MEDS: Ferrous Sulfate 324 MG TABLET.DR PO ×2 (08:57→17:28)
[2024-08-29] MEDS: cefuroxime axetiL 250 MG TABLET PO ×2 (08:58→21:03)
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
[2024-08-29 20:00] VITALS: BP 133/66; PULSE 86; O2SAT 100
[2024-08-29] MEDS: Cariprazine HCl 3 MG CAPSULE PO (21:04)
[2024-08-29] MEDS: Mirtazapine 15 MG TABLET PO (22:50)
[2024-08-30 08:00] VITALS: BP 144/78; PULSE 78; RESP 16; TEMP 37.7; O2SAT 99
[2024-08-30] MEDS: cefuroxime axetiL 250 MG TABLET PO (09:36)
[2024-08-30] MEDS: Ferrous Sulfate 324 MG TABLET.DR PO (09:37)
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
== END 2024-08-30 11:30 | disposition home or self-care (01) | DRG 751 ==
PROVIDERS: Admitting Provider Psychiatry & Neurology Psychiatry; Visit Provider Psychiatry & Neurology Psychiatry
DX: F32.2 Major depressive disorder, single episode, severe without psychotic features (principal); F10.10 Alcohol abuse, uncomplicated; F41.1 Generalized anxiety disorder; F43.10 Post-traumatic stress disorder, unspecified; Z23 Encounter for immunization; Z79.899 Other long term (current) drug therapy
CPT/HCPCS: 36415; 80061; 83036; 83735; 84443; 85025; 90656

== ENCOUNTER → 2024-08-24 16:35 | Outpatient (BNV) | payer OTHER, SELFPAY | PROVIDERS: Admitting Provider Psychiatry & Neurology Psychiatry; Visit Provider Psychiatry & Neurology Psychiatry | DX: F32.2 Major depressive disorder, single episode, severe without psychotic features (principal); F41.1 Generalized anxiety disorder; F43.11 Post-traumatic stress disorder, acute; F10.10 Alcohol abuse, uncomplicated | CPT/HCPCS: 90792; 99231; 99232 ==

== ENCOUNTER → 2024-11-23 09:36 | Outpatient (BNVA) | payer OTHER, SELFPAY | PROVIDERS: PCP Internal Medicine; Visit Provider Internal Medicine | DX: Z53.21 Procedure and treatment not carried out due to patient leaving prior to being seen by health care provider (principal) ==

== ENCOUNTER 2025-06-29 11:20 | Outpatient (AMB) | payer OTHER, SELFPAY ==
--- NOTE | 2025-06-29 11:25 | A.OFFPC_ITS ---
Vital Signs 06/29/25 11:26 Height 5 ft 4.75 in Weight 200 lb BMI 33.5 BP 126/66 Blood Pressure Location Rt brachial Position Sitting Respiration 12 Pulse 100 Pulse Source Pulse Oximeter Temp 98.7 F Temp Source Oral Pulse Oximetry (%) 96 Oxygen Delivery Method Room Air Intake Visit Reasons: VOCATIONAL COORDINATOR CPE Intake Note: New patient visit Customs Patrol Officer Required: No Allergies acetaminophen (From Percocet) Allergy (Verified 08/21/24 23:15) Hives oxycodone (From Percocet) Allergy (Verified 08/21/24 23:15) Hives Tobacco use date assessed: 06/29/25 Dental Screening Dental Screen Date: 06/29/25 Did you have a dental visit in the last 12 months?: Yes Did you have a dental problem in the last 6 months where you did not have access to dental care?: No Was dental information given to patient?: Patient has dentist HPI VOCATIONAL COORDINATOR CPE HPI Details Pt is a 30 year old female who presents today to [facility]. She is transferring from [facility]. No records and states that last time she was seen was prior to the pandemic. Pysch: currently on cymbalta and guaifenesin. Does not feel effective. She states that she struggles sleeping despite sleeping medication such as Ambien. She says that she has trialed almost everything in it does not appear to be effective. She has also trialed numerous SSRIs to help try to manage her depression but has not yet found any regimen that works for her. The only time her mood gets better is around the time of her period. She has followed with a neurologist in the past who did an EEG and told that she was not having any seizures. She has never had a sleep study for her insomnia and is not sure if she has any words sleep behaviors but does have a lot of nightmares, jumping in her sleep and talking when she has nightmares. Cpa Tax: overdue, [facility]. The only time her mood gets better is around the time of her period. She says that her period has been irregular and she thinks partially related to her IUD. She did not have a period for 10 years and had her IUD out a few months ago and then had a recent very heavy, But has not had anything since. Heme: Review of labs show anemia. She says that she was a blood donor and that was why. Uro: Has a history of chronic intermittent dysuria from her chronic urethritis. Has seen numerous urologist. Has tried an IC diet without improvement Fam hx: mother has CAD, father t2dm, maternal uncles has had MIs, maternal grandfather [place] [facility] Medical History (Updated 06/29/25 @ 12:06 by Beatrice Nguyen PA-C) ALBERTO (generalized anxiety disorder) Alcohol abuse Anxiety PTSD (post-traumatic stress disorder) Asthma Fibromyalgia Chronic pain Surgical History History of placement of ear tubes History of tonsillectomy and adenoidectomy Social History Household Members: Other Household Members Other:: patient lives with her ex-, 04/2023, 03/2024 Housing: Apartment Do you presently have visiting nurse or other home services: No Comment: 1:1 observation Section 12 Patient Tobacco Use Status: Never used Tobacco Tobacco use type: Cigarette e-Cigarette/Vaping Use: Never Used Second Hand Smoke Exposure: No service: No Current occupational status: employed Current occupation: [employer] Current occupational exposures/hazards: No Sexual orientation: Straight/Heterosexual Cognitive needs: No Hearing needs: No Vision needs: Yes (glasses) Questionnaire PHQ-9 Over the last 2 weeks, how often have you been bothered by any of the following problems? 1. Little interest or pleasure in doing things: several days 2. Feeling down, depressed, or hopeless: more than half the days 3. Trouble falling or staying asleep, or sleeping too much: nearly every day 4. Feeling tired or having little energy: several days 5. Poor appetite or overeating: several days 6. Feeling bad about yourself - or that you are a failure or have let yourself or your family down: several days 7. Trouble concentrating on things, such as reading the newspaper or watching television: several days 8. Moving or speaking so slowly that other people could have noticed. Or the opposite - being so fidgety or restless that you have been moving around a lot more than usual: several days 9. Thoughts that you would be better off or of hurting yourself in some way: not at all Total score: 11 Depression Screening Interpretation: Positive Depression Screening Follow-up: Existing condition, Community Mental Health Worker F/U and Follow-up Visit Requested Depression Screening Done: Yes 25500 - PHQ-9 Billing: Yes Source: Developed by Drs. Armond Olmos, Carey Pina, Jefferson Weston and colleagues, with an educational shirley from [employer]. Thrive Questionnaire Date Thrive assessed: 11/20/24 I am a: Patient What is your living situation today?: I have a steady place to live Within the past 12 months, did the food you bought not last and you didn't have the money to get more?: Never true Within the past 12 months, did you worry whether your food would run out before you got money to buy more?: Never true Do you have trouble paying for medicines?: No Do you have trouble getting transportation to medical appointments?: No Do you have trouble paying your heating and electricity bill?: No Do you have trouble taking care of your child, family member or friend?: No Do you have trouble with day-to-day activities such as bathing, preparing meals, shopping, managing finances, etc.?: No Are you currently unemployed and looking for a job?: No Are you interested in more education?: No Please select the resources that you would like help with: None THRIVE Score: 0 AUDIT C Alcohol Use Questionnaire (AUDIT-C) 1. How often do you have a drink containing alcohol?: 2-3 times a week 2. How many drinks containing alcohol do you have on a typical day when you are drinking?: 3 or 4 3. How often do you have six or more drinks on one occasion?: Never Total Score: 4 Score Reviewed/Action Taken: Yes ALBERTO-7 AMB Questionnaire ALBERTO-7 Date ALBERTO - 7 assessed: 06/29/25 Feeling nervous, anxious, or on edge: 2 = More than half the days Not being able to stop or control worryin = More than half the days Worrying too much about different things: 2 = More than half the days Trouble relaxin = Several days Being so restless that it is hard to sit still: 1 = Several days Becoming easily annoyed or irritable: 2 = More than half the days Feeling afraid as if something awful might happen: 1 = Several days Total ALBERTO-7 score (0-4 normal; 5-9 mild; 10-14 moderate; 15-21 severe): 11 Source: Developed by Drs. Armond Olmos, Carey Pina, Jefferson Weston and colleagues, with an educational shirley from [employer]. ALBERTO-7 Assessment Billing ALBERTO-7 Assessment Tool: ALBERTO-7 Assessment 93779 Physical exam (Primary Care) Vital Signs: Last Vital Signs Temp 98.7 F 06/29/25 11:26 Pulse 100 06/29/25 11:26 Resp 12 06/29/25 11:26 BP 126/66 06/29/25 11:26 Pulse Ox 96 06/29/25 11:26 Oxygen Delivery Method Room Air 06/29/25 11:26 BMI result Body Mass Index 33.5 Tobacco/Smoking Status: Tobacco use Status Tobacco use date assessed 06/29/25 06/29/25 11:30 Patient Tobacco Use Status Never used Tobacco 06/29/25 11:30 Tobacco use type Cigarette 06/29/25 11:30 e-Cigarette/Vaping Use Never Used 06/29/25 11:30 PHQ-9: PHQ-9 Score PHQ-9: Total score 11 06/29/25 12:49 Depression Screening Interpretation: Positive Depression Screening Follow-up: Existing condition, Community Mental Health Worker F/U and Follow-up Visit Requested Thrive Assessment: Date of Thrive Assessment Date Thrive assessed 11/20/24 06/29/25 11:30 Const Orientation/consciousness: patient oriented x3 HENMT Ears: hearing grossly normal bilaterally Neck Thyroid: Thyroid normal Lymphatic: no lymphadenopathy noted Resp Auscultation: clear to auscultation bilaterally Cardio Rate: regular rate Rhythm: regular rhythm Heart sounds: S1 normal heart sound present and S2 normal heart sound present GI Inspection: Yes normal to inspection Palpation (GI): Soft to palpation and Other GI palpation findings present (nontender, no cva tenderness) Auscultation: normoactive bowel sounds Rectal Exam - Female: deferred Skin General skin exam: no rashes or lesions noted Neuro General: patient oriented x3, gait normal and no focal motor deficits Coding Level of Care Code Est Pt Level 4 (65134) Complex EM visit Add On G2211 Diagnoses Major depressive disorder, severe F32.2 ALBERTO (generalized anxiety disorder) F41.1 Insomnia disorder G47.00 Fatigue R53.83 Anemia D64.9 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 No SI/HI. (2) ALBERTO (generalized anxiety disorder): Comment: Anxiety issues primarily focused on interpersonal relationships; carries this diagnosis so will leave for now Code(s): F41.1 - Generalized anxiety disorder Category: Medical Plan: As above. Stable. (3) Insomnia disorder: Code(s): G47.00 - Insomnia, unspecified Category: Medical Plan: Sleep study ordered (4) Fatigue: Code(s): R53.83 - Other fatigue Category: Medical Plan: As above. Labs ordered. (5) Anemia: Code(s): D64.9 - Anemia, unspecified Category: Medical Plan: We will check labs (6) Urethra disorder: Code(s): N36.9 - Urethral disorder, unspecified Category: Medical Plan: has seen numerous urologists. She takes azo prn. She has follow up with Patricio Rand (7) Abnormal menstrual cycle: Code(s): N92.6 - Irregular menstruation, unspecified Category: Medical Plan: Labs ordered. Referral to dental laboratory worker Orders: Orders Comprehensive [place]. Panel Fast Today D64.9 - Anemia, unspecified Lipid Panel Today D64.9 - Anemia, unspecified TSH reflex Free T4 Today D64.9 - Anemia, unspecified Magnesium Today D64.9 - Anemia, unspecified Ferritin Today D64.9 - Anemia, unspecified Hemoglobin A1c Today D64.9 - Anemia, unspecified, R73.01 - Impaired fasting glucose Follicle Stimulating Hormone Today N92.6 - Irregular menstruation, unspecified Lutenizing Hormone Today N92.6 - Irregular menstruation, unspecified RT PSG in-lab sleep study Today F32.2 - Major depressive disorder, single episode, severe without psychotic features, F41.1 - Generalized anxiety disorder, F43.10 - Post-traumatic stress disorder, unspecified, F51.5 - Nightmare disorder, G47.00 - Insomnia, unspecified, R53.83 - Other fatigue Complete Blood Count Auto Diff Today D64.9 - Anemia, unspecified Vitamin B12 and Folate Today D64.9 - Anemia, unspecified IRON PROFILE Today D64.9 - Anemia, unspecified Testosterone, Free/Total Today N92.6 - Irregular menstruation, unspecified Estrad Free (Tot Ultra + Free) Today N92.6 - Irregular menstruation, unspecified Referrals MUSIC ARTIST Referral [phone] - Encounter for gynecological examination (general) (routine) without abnormal findings Medications: Discontinued cariprazine (Vraylar) Discontinued Reason: Patient no longer taking 3 mg PO BEDTIME 30 days 30 caps 0RF mirtazapine Discontinued Reason: Patient no longer taking 15 mg PO BEDTIME 30 days 30 tabs 0RF cefuroxime axetil Discontinued Reason: Patient no longer taking 250 mg PO BID 2 days 4 tabs 0RF
[2025-06-29 11:26] VITALS: BP 126/66; PULSE 100; RESP 12; TEMP 37.1; O2SAT 96; BMI 33.5
== END 2025-06-29 12:11 | disposition home or self-care (01) ==
LOC: HO.HMCFM 11:21
PROVIDERS: PCP Physician Assistant; Visit Provider Physician Assistant
DX: F32.2 Major depressive disorder, single episode, severe without psychotic features (principal); F41.1 Generalized anxiety disorder; G47.00 Insomnia, unspecified; R53.83 Other fatigue; D64.9 Anemia, unspecified; N36.9 Urethral disorder, unspecified; N92.6 Irregular menstruation, unspecified

== ENCOUNTER → 2025-06-29 11:20 | Outpatient (BNVA) | payer OTHER, SELFPAY | PROVIDERS: PCP Physician Assistant; Visit Provider Physician Assistant | DX: F32.2 Major depressive disorder, single episode, severe without psychotic features (principal); F41.1 Generalized anxiety disorder; G47.00 Insomnia, unspecified; R53.83 Other fatigue; D64.9 Anemia, unspecified; N36.9 Urethral disorder, unspecified; N92.6 Irregular menstruation, unspecified; R73.01 Impaired fasting glucose; F43.10 Post-traumatic stress disorder, unspecified; F51.5 Nightmare disorder | CPT/HCPCS: 96127; 99212 ==

== ENCOUNTER 2025-06-30 08:14 | Outpatient (REF) | payer OTHER, SELFPAY ==
[2025-06-30 10:36] LABS: MANUAL DIFF FLAG NO
[2025-06-30 10:45] LABS: Hematocrit 36.9 % (37.0-47.0); Hemoglobin 12.5 g/dl (12.0-16.0); Imm Gran Abs Auto 0.02 X10*3/uL (0.00-0.03); Imm Gran Pct Auto 0.3 % (0.0-0.4); Lymphocytes Absolute Auto 1.6 X10*3/uL (1.2-4.9); Mean Corpuscular HGB Conc 33.9 g/dl (31.0-35.0); Mean Corpuscular Hemoglobin 28.6 pg (27.0-33.0); Mean Corpuscular Volume 84.4 fL (80.0-98.0); NRBC Abs Auto 0.000 X10*3/uL (0.0-0.012); NRBC Pct Auto 0.0 /100WBC (0.0-0.2); Platelet Count 254 X10*3/uL (160-400); Red Blood Count 4.37 X10*6/uL (4.20-5.50); White Blood Count 6.5 X10*3/uL (4.8-10.8)
[2025-06-30 11:26] LABS: Alanine Aminotransferase 20 U/L (0-31); Anion Gap 11 (12-20); Aspartate Amino Transferase 23 U/L (5-31); Blood Urea Nitrogen 13 mg/dL (9-16); Calcium 9.1 mg/dL (8.4-10.2); Carbon Dioxide 28 mmol/L (22-29); Chloride 105 mmol/L (96-108); Estimated Glomerular Filt Rate > 60; Ferritin 11 ng/mL (10-122); Iron 110 mcg/dL (30-160); Magnesium 2.3 mg/dL (1.6-2.6); Percent Iron Saturation 32 % (15-50); Potassium 3.8 mmol/L (3.3-5.1); Sodium 140 mmol/L (135-145); Total Iron Binding Capacity 346 mcg/dL (228-428); Unsaturated Iron Binding 236 ug/dL
[2025-06-30 11:27] LABS: Albumin Level 4.7 g/dL (3.5-5.0); Alkaline Phosphatase 56 U/L (39-117); Cholesterol 196 mg/dL (<200); Folate 9.8 ng/mL (> or = 4.0); HDL Cholesterol 43 mg/dL (>40); Total Protein 7.4 g/dL (6.5-8.0); Triglycerides 133 mg/dL (<150); Vitamin B12 388 pg/mL (200-900)
[2025-07-01 07:17] LABS: Follicle Stimulating Hormone 7.7 mIU/mL
[2025-07-06 15:24] LABS: Testosterone, Free 3.0 pg/mL (0.1-6.4)
[2025-07-14 03:04] LABS: Estradiol Free 1.14 pg/mL; Estradiol, Ultrasensitive 64 pg/mL
== END 2025-06-30 08:15 | disposition home or self-care (01) ==
LOC: HO.HMGCLDS 08:14
PROVIDERS: PCP Physician Assistant; Visit Provider Physician Assistant
DX: R73.01 Impaired fasting glucose (principal); D64.9 Anemia, unspecified; N92.6 Irregular menstruation, unspecified
CPT/HCPCS: 36415; 80053; 80061; 82607; 82670; 82681; 82728; 82746; 83001; 83002; 83036; 83540; 83735; 84402; 84403; 84443; 85025